=== PATIENT | male | born 1935 | race Caucasian/White ===

== ENCOUNTER 2022-10-03 11:02 | Inpatient (IN) ==
[2022-10-03] MEDS ORDERED: SODIUM CHLORIDE 1,000 ML IV STA (11:41)
--- NOTE | 2022-10-03 11:45 | ED.PDOC ---
General ED Provider: Dr. FRANKLIN SHARMA MD Chief Complaint: Weakness Stated Complaint: mild to mod general weakness today and trip and fall c/o mild left hip and knee ache, o/w no loc, no bleeding, no neck pain, gcs 15, hx resting tremors, no dm, mi or htn Time Seen by Provider: 10/03/22 11:34 Mode of Arrival: Wheelchair Information Source: Patient Primary Care Provider: GIOVANI GREEN MD Nursing and Triage Documentation Reviewed and Agree: Yes Does patient meet sepsis criteria?: No System Inflammatory Response Syndrome: Not Applicable Sepsis Protocol: For patient's 13 years and over: Temp is 96.8 and below OR 101 and greater Pulse >90 BPM Resp >20/minute Acutely Altered Mental Status Are patient's symptoms suggestive of a new infection, such as: -Pneumonia -Skin, Soft Tissue -Endocarditis -UTI -Bone, Joint Infection -Implantable Device -Acute Abdominal Infection -Wound Infection -Meningitis -Blood Stream Catheter Infection -Unknown Review of Systems Review Of Systems Constitutional: Reports Weakness; Denies Fever Eyes: Denies Vision change Ears, Nose, Mouth, Throat: Denies Throat pain Respiratory: Denies Cough or Short of air Cardiac: Denies Chest pain GI: Denies Abdominal pain or Vomiting : Denies Frequency Musculoskeletal: Reports Joint pain Skin: Reports Bruising Neurological: Denies Cognitive dysfunction All Other Systems: Other [facility] Medical History (Updated 10/03/22 @ 13:36 by FRANKLIN SHARMA MD) Acid reflux Acute arthritis Anesthesia History of gastrointestinal disorder History of hypertension Seasonal allergies Social History Smoking and tobacco status: Never smoker Alcohol intake: never Substance use type: does not use Seatbelt use: always Drives intoxicated or rides with intoxicated piledriver carpenter: No Water heater temperature set < 120 degrees: Yes Working smoke detector in home: Yes Fire extinguisher in home: Yes Carbon monoxide detector in home: Yes Surgical History History of cholecystectomy History of hernia surgery History of tonsillectomy Physical Exam Physical Exam Appearance: Reports No pain distress Ill-appearing: None Pain Distress: None Eyes: Reports ELSA, EOMI and Conjunctiva clear ENT: Reports Nose normal and Oropharynx normal Neck: Supple Respiratory: Reports Airway patent, Breath sounds clear and Breath sounds equal Cardiovascular: Reports RRR GI/: Reports Soft and Nontender Musculoskeletal: Reports ROM intact (tender anterior left knee and hip) Skin: Reports Warm and Dry Neurological: Reports Cranial nerves intact, Alert and Oriented Psychiatric: Reports Affect appropriate Interpretation Radiology Interpretation Radiology Interpretation By: Radiologist Exam Interpreted: CT Scan Xray Comments: no brain bleed Radiology Interpretation By: Radiologist Exam Interpreted: Other Xray Comments: no fx left knee or hip EKG Interpretation Time of EKG #1: 13:35 Rate: Normal Rhythm: Sinus Interpretation: rbbb, no stemi Critical Care Note Critical Care Note Total Critical Care Time (mins): 0 Course Course Hematology/Chemistry: 10/03/22 11:51 10/03/22 11:51 Orders, Labs, Meds: Lab Review 10/03/22 10/03/22 10/03/22 11:45 11:45 11:51 WBC 4.67 RBC 4.40 L Hgb 13.9 L Hct 41.3 L MCV 93.9 MCH 31.6 H MCHC 33.7 RDW Coeff of Adenike 12.6 Plt Count 196 Immature Gran % (Auto) 0.2 Neut % (Auto) 50.1 Lymph % (Auto) 19.3 Conway % (Auto) 28.7 H Eos % (Auto) 1.3 Baso % (Auto) 0.4 Neut # (Auto) 2.3 Lymph # (Auto) 0.9 Conway # (Auto) 1.3 Eos # (Auto) 0.1 Baso # (Auto) 0.0 Immature Gran # (Auto) 0.0 Sodium Potassium Chloride Carbon Dioxide Anion Gap BUN Creatinine Estimated GFR (MDRD) BUN/Creatinine Ratio Glucose Lactic Acid Calcium Total Bilirubin AST ALT Alkaline Phosphatase Troponin I Total Protein Albumin Globulin Albumin/Globulin Ratio Urine Color Urine Clarity Urine pH Ur Specific Stephenson Urine Protein Urine Glucose (UA) Urine Ketones Urine Blood Urine Nitrite Urine Bilirubin Urine Urobilinogen Ur Leukocyte Esterase Urine Microscopic RBC Ur Squamous Epith Cells Influ A Molecular Assay Negative by naat Influ B Molecular Assay Negative by naat SARS CoV-2 RNA Rapid DARLEEN Negative 10/03/22 10/03/22 10/03/22 11:51 11:51 12:36 WBC RBC Hgb Hct MCV MCH MCHC RDW Coeff of Adenike Plt Count Immature Gran % (Auto) Neut % (Auto) Lymph % (Auto) Conway % (Auto) Eos % (Auto) Baso % (Auto) Neut # (Auto) Lymph # (Auto) Conway # (Auto) Eos # (Auto) Baso # (Auto) Immature Gran # (Auto) Sodium 135.5 Potassium 3.97 Chloride 101.7 Carbon Dioxide 30.7 H Anion Gap 7.07 BUN 20.9 H Creatinine 0.93 Estimated GFR (MDRD) 77.00 BUN/Creatinine Ratio 22.47 Glucose 123.4 H Lactic Acid 1.30 Calcium 8.44 Total Bilirubin 0.93 AST 91.1 H ALT 69.4 H Alkaline Phosphatase 87.2 Troponin I < 0.012 Total Protein 6.72 Albumin 3.68 Globulin 3.04 Albumin/Globulin Ratio 1.21 Urine Color Dark Urine Clarity Clear Urine pH 6.0 Ur Specific Stephenson 1.025 Urine Protein 1+ H Urine Glucose (UA) Negative Urine Ketones Negative Urine Blood Negative Urine Nitrite Negative Urine Bilirubin Negative Urine Urobilinogen 0.2 Ur Leukocyte Esterase Negative Urine Microscopic RBC 2-5 Ur Squamous Epith Cells Not present Influ A Molecular Assay Influ B Molecular Assay SARS CoV-2 RNA Rapid DARLEEN Orders Category Date Time Status EKG-(ED ONLY) Stat CARDIO 10/03/22 11:41 Completed CBC W/ AUTO DIFF Stat LAB 10/03/22 11:51 Completed CMP [COMPREHENSIVE METABOLIC PANEL] Stat LAB 10/03/22 11:51 Completed FREE T4 (FREE THYROXINE) Stat LAB 10/03/22 13:34 Ordered LACTIC ACID Stat LAB 10/03/22 11:51 Completed MOLECULAR FLU A & B [FLU A/B MOLECULAR] Stat LAB 10/03/22 11:45 Completed SARS COV-2 RNA RAPID DARLEEN Stat LAB 10/03/22 11:45 Completed TROPONIN I Stat LAB 10/03/22 11:51 Completed TSH [THYROID STIMULATING HORMONE] Stat LAB 10/03/22 13:34 Ordered URINALYSIS C & S IF INDICATED Stat LAB 10/03/22 12:36 Completed Sodium Chloride 0.9% [Sodium Chloride] 1,000 ml MEDS 10/03/22 11:41 Discontinued IV BOLUS CHEST, 1V AP ONLY Stat RADS 10/03/22 11:[address] HEAD W/O CONTRAST Stat RADS 10/03/22 11:41 Completed HIP, LEFT 2VWS W OR W/O PELVIS Stat RADS 10/03/22 11:41 Completed KNEE, LEFT 1 OR 2 VIEWS Stat RADS 10/03/22 11:41 Completed Medications Discontinued Medications Generic Name Dose Route Start Last Admin Trade Name Jordin PRN Reason Stop Dose Admin Sodium Chloride 1,000 mls @ 1,000 mls/hr 10/03/22 11:41 10/03/22 13:01 Sodium Chloride IV 10/03/22 12:40 1,000 mls/hr BOLUS STA Administration Vital Signs: Temp Pulse Resp BP Pulse Ox 10/03/22 11:04 97.1 F L 73 18 146/82 H 94 L Discharge Plan Discharge Patient Disposition: ADMITTED INPATIENT Discharge Problem: Weakness Prescriptions: No Action propranolol 20 MG tablet 20 mg PO BID Probiotic 10 billion cell Capsule 1 cell PO DAILY primidone 50 mg tablet 150 mg PO BEDTIME tamsulosin 0.4 mg capsule 0.4 mg PO QDAY escitalopram oxalate 10 mg tablet 10 mg PO QDAY Did you review [place] ROR ENGINEER for ALL controlled substances?: Not Applicable ED Provider: FRANKLIN SHARMA Condition: Stable Physician Progress Note: [] full tele admit d/w Dr Green
[2022-10-03 11:55] LABS: BASOPHILS % (AUTO) 0.4 % (0.0-3.0); EOSINOPHILS # (AUTO) 0.1 K/ul (0.0-0.7); EOSINOPHILS % (AUTO) 1.3 % (0.0-7.0); HEMATOCRIT 41.3 % (42.0-52.0); HEMOGLOBIN 13.9 g/dl (14.0-18.0); IMMATURE GRANULOCYTE % (AUTO) 0.2 % (0.0-5.0); LYMPHOCYTES # (AUTO) 0.9 K/uL (0.60-3.4); LYMPHOCYTES % (AUTO) 19.3 (10.0-50.0); MEAN CORPUSCULAR HEMOGLOBIN 31.6 pg (27.0-31.0); MEAN CORPUSCULAR HGB CONC 33.7 (31.8-35.4); MEAN CORPUSCULAR VOLUME 93.9 fl (80.0-94.0); MONOCYTES # (AUTO) 1.3 K/uL (0.4-2.0); MONOCYTES % (AUTO) 28.7 (0-10); NEUTROPHILS # (AUTO) 2.3 K/ul (2.0-6.9); NEUTROPHILS % (AUTO) 50.1 % (42.2-75.2); PLATELET COUNT 196 10^3/uL (140-440); RDW COEFFICIENT OF VARIATION 12.6 % (11.6-14.8); WHITE BLOOD COUNT 4.67 K/ul (4.2-10.2)
[2022-10-03 12:07] LABS: ALANINE AMINOTRANSFERASE 69.4 U/L (0-50); ALBUMIN 3.68 g/dL (3.5-5.0); ALKALINE PHOSPHATASE 87.2 U/L (56-119); ASPARTATE AMINO TRANSFERASE 91.1 U/L (17-59); BILIRUBIN,TOTAL 0.93 mg/dL (0.2-1.3); BLOOD UREA NITROGEN 20.9 mg/dL (9-20); CALCIUM 8.44 mg/dL (8.4-10.2); CARBON DIOXIDE 30.7 mmol/L (22-30.0); CHLORIDE 101.7 mmol/L (98-107); CREATININE 0.93 mg/dL (0.60-1.10); GLUCOSE 123.4 mg/dL (74-106); SODIUM 135.5 mmol/L (134.5-145); TOTAL PROTEIN 6.72 g/dL (6.3-8.2)
[2022-10-03 12:17] LABS: MOLECULAR FLU A NEGATIVE BY NAAT (NEGATIVE); MOLECULAR FLU B NEGATIVE BY NAAT (NEGATIVE)
[2022-10-03 12:19] LABS: POTASSIUM 3.97 mmol/L (3.5-5.1)
[2022-10-03 12:20] LABS: TROPONIN I < 0.012 ng/ml (0.0000-0.120)
[2022-10-03 12:29] LABS: SARS COV-2 RNA RAPID NAAT NEGATIVE (NEGATIVE)
--- NOTE | 2022-10-03 12:36 | DI ---
EXAM: Chest one-view AP upright HISTORY: Weakness COMPARISON: 07/22/2019 FINDINGS: The lungs are clear. The cardiac silhouette is mildly enlarged. Vascular calcifications present in the aortic arch. Mild degenerative changes present in the right glenohumeral joint. IMPRESSION: Mild cardiomegaly with no acute cardiopulmonary process. 2. Mild degenerative change in the right glenohumeral joint.
--- NOTE | 2022-10-03 12:44 | DI ---
EXAM: Left knee two-view is HISTORY: Patient fell COMPARISON: None. FINDINGS: AP and cross-table lateral view of the left knee is obtained. The medial lateral joint co mpartments are normal. Patellofemoral joint is normal. There is no fracture or subluxation. There is no joint effusion. IMPRESSION: Negative AP and lateral left knee
--- NOTE | 2022-10-03 12:45 | DI ---
EXAM: Two views of the left hip HISTORY: Fall, left hip pain. COMPARISON: None. FINDINGS/IMPRESSION: No fracture or dislocation.
--- NOTE | 2022-10-03 12:46 | CT ---
EXAM: CT head without contrast. HISTORY: Weakness. COMPARISON: 07/22/1990. TECHNIQUE: Multiple axial images of the brain were obtained from the skull base through the vertex w ithout intravenous contrast. Multiplanar reformats were provided. FINDINGS: There is no intracranial hemorrhage or extraaxial collection. The wells-white differentiat ion is maintained without evidence for acute large vascular territory infarction. There are areas of periventricular and subcortical white matter low attenuation. The cortical sulci and cerebral ventr icles are symmetrically enlarged. The basal cisterns are well visualized. There is no hydrocephalus , mass effect, or midline shift. Atherosclerotic calcifications are present. Mild mucosal thickenin g maxillary and sphenoid sinuses. Otherwise, the paranasal sinuses and mastoid air cells are clear. The calvarium is intact. Since the prior study, there has been no significant interval change. IMPRESSION: 1. No acute intracranial abnormality. 2. 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 All CT scans are performed using dose optimization techniques as appropriate to the performed exam an d include at least one of the following: Automated exposure control, adjustment of the mA and/or kV according t o size, and the use of iterative reconstruction technique.
[2022-10-03 13:13] LABS: BILIRUBIN,URINE Negative (NEGATIVE); CLARITY,URINE Clear (CLEAR); COLOR,URINE Dark (YELLOW); GLUCOSE, URINE (UA) Negative (NEGATIVE); KETONES,URINE Negative (NEGATIVE); LEUKOCYTE ESTERASE ,URINE Negative (NEGATIVE); NITRITE,URINE Negative (NEGATIVE); PROTEIN,URINE 1+ (NEGATIVE); URINE, BLOOD Negative (NEGATIVE); UROBILINOGEN,URINE 0.2 (0.2)
[2022-10-03 13:16] LABS: SQUAMOUS EPITHELIAL CELL,UR NOT PRESENT (0-5)
[2022-10-03] MEDS ORDERED: TYLENOL PO PRN (13:36)
[2022-10-03] MEDS: SODIUM CHLORIDE 1,000 ML IV SCH (14:19)
[2022-10-03 14:55] VITALS: BMI 22.1
[2022-10-03] MEDS: INDERAL PO SCH (20:36)
[2022-10-03] MEDS: MYSOLINE PO SCH (20:36)
[2022-10-03] MEDS ORDERED: MYSOLINE PO SCH (21:00)
[2022-10-03] MEDS ORDERED: VISTARIL INJ IM PRN (21:18)
[2022-10-04] MEDS: SODIUM CHLORIDE 1,000 ML IV SCH ×2 (03:12→16:17)
[2022-10-04 04:19] LABS: BASOPHILS % (AUTO) 0.5 % (0.0-3.0); EOSINOPHILS # (AUTO) 0.1 K/ul (0.0-0.7); EOSINOPHILS % (AUTO) 1.5 % (0.0-7.0); HEMATOCRIT 39.4 % (42.0-52.0); HEMOGLOBIN 13.3 g/dl (14.0-18.0); IMMATURE GRANULOCYTE % (AUTO) 0.2 % (0.0-5.0); LYMPHOCYTES # (AUTO) 1.1 K/uL (0.60-3.4); LYMPHOCYTES % (AUTO) 18.5 (10.0-50.0); MEAN CORPUSCULAR HEMOGLOBIN 31.7 pg (27.0-31.0); MEAN CORPUSCULAR HGB CONC 33.8 (31.8-35.4); MEAN CORPUSCULAR VOLUME 93.8 fl (80.0-94.0); MONOCYTES # (AUTO) 1.9 K/uL (0.4-2.0); MONOCYTES % (AUTO) 32.7 (0-10); NEUTROPHILS # (AUTO) 2.8 K/ul (2.0-6.9); NEUTROPHILS % (AUTO) 46.6 % (42.2-75.2); PLATELET COUNT 187 10^3/uL (140-440); RDW COEFFICIENT OF VARIATION 12.6 % (11.6-14.8); WHITE BLOOD COUNT 5.94 K/ul (4.2-10.2)
[2022-10-04 04:31] LABS: ALANINE AMINOTRANSFERASE 54.4 U/L (0-50); ALBUMIN 3.09 g/dL (3.5-5.0); ALKALINE PHOSPHATASE 69.1 U/L (56-119); ASPARTATE AMINO TRANSFERASE 62.5 U/L (17-59); BILIRUBIN,TOTAL 1.16 mg/dL (0.2-1.3); BLOOD UREA NITROGEN 21.3 mg/dL (9-20); CARBON DIOXIDE 26.6 mmol/L (22-30.0); CHLORIDE 107.6 mmol/L (98-107); CREATININE 0.86 mg/dL (0.60-1.10); GLUCOSE 79.2 mg/dL (74-106); SODIUM 136.8 mmol/L (134.5-145); TOTAL PROTEIN 5.92 g/dL (6.3-8.2)
[2022-10-04 04:43] LABS: TROPONIN I < 0.012 ng/ml (0.0000-0.120)
[2022-10-04] MEDS: FLORASTOR PO SCH (08:53)
[2022-10-04] MEDS: LEXAPRO PO SCH (08:54)
[2022-10-04] MEDS: INDERAL PO SCH ×2 (08:54→20:27)
[2022-10-04] MEDS: FLOMAX PO SCH (08:54)
[2022-10-04] MEDS ORDERED: NON-FORMULARY MEDICATION (Lactobacillus Acidophilus [Probiotic] 10 billion cell Capsule) PO SCH (09:00)
--- NOTE | 2022-10-04 11:52 | RS.OTINEVL ---
Subjective - Patient information Date of Evaluation: 10/04/22 Date of Arrival on Unit: 10/03/22 Admitted From:: Home Diagnosis: Weakness, falls PRECAUTIONS: falls Usual Living Arrangement: With Spouse Living Arrangement Comments: Lives at home with spouse. Home Environment: House, Stairs (few), Rail (3 steps) Medical History: Hypertension, Arthritis Medical History Comments:: tremor, GERD, Surgical History: Cholecystectomy, Tonsillectomy Surgical History Comments:: hernia sx Medications: see chart - Level of function Prior to this admission, the patient could do the following:: Partially Dependent Ambulation Abilities prior to this admission: Pt's helps him with all ADLS. Current Level of Function: Partially Dependent Current Equipment Used at Home: rolling Walker, Cane, Shower chair. Interventions - Objective Patient Orientation: Person Current Interventions: IV's, Telemetry Observation: Pt is very weak and he will follow directions for transferring with a rolling walker. Pt requires assistance with all ADLs. Interventions - ROM Right Upper Extremity AROM: Slight limitation Left Upper Extremity AROM: Slight limitation - Strength Right Upper Extremity Strength: Mild Weakness Left Upper Extremity Strength: Mild Weakness - Sensation Right Upper Extremity Sensation: Intact/Normal Left Upper Extremity Sensation: Intact/Normal Balance - Sitting Balance Static Sitting Balance: Good Dynamic Sitting Balance: Good - Standing Balance Static Standing Balance: Fair Dynamic Standing Balance: Fair ADL Skills - Self Feeding Self Feeding: Min Assist - Grooming Grooming: Min Assist Grooming Set-up: Sitting - Bathing Bathing UE: Min Assist Bathing LE: Max Assist Bathing Set-up: Shower - Dressing Dressing UE: Min Assist Dressing LE: Max Assist - Toilet Management Toilet Hygiene: Max Assist Toilet Clothing Management: Mod Assist Functional Mobility - Bed Mobility Rolling R/L: Independent Scooting: Min Assist Supine to Sit: Min Assist Sit to Supine: Min Assist - Transfers Sit to Stand: CGA Stand to Sit: Min Assist Stand Pivot Transfers: Min Assist (Pt requires verbal cues. ) - Ambulation Weight Bearing Status: FWB Assistive Device Used: Rolling Walker Assistance needed with Ambulation: Min Assist - Safety Awareness Safety Awareness: Poor OLESYA INDEX SCORE: . Additional Treatment Performed - Time with patient Length of Evaluation: 18 Total treatment time: 29 Activities Do you enjoy playing games?: Yes Would you be interested in leaving your room for activities?: No Would you enjoy group activities?: No Do you have difficulty with your vision?: Yes (Wears glasses) What types of things do you enjoy doing? Any Hobbies?: Jean Paul. Patient Interests:: Watching Television, Puzzles/Games, Visiting/Socializing Patient Education Patient Education: Home Exercise Program, Education of Plan of Care Teaching Recipient: Patient Teaching Methods: Discussion, Demonstration Assessment Problem List:: Decreased safety/Risk of falls, Weakness Rehab Potential: Good Further Therapy Indicated?: Yes Evaluation Complexity: HISTORY: Medium, EXAM OF BODY SYSTEMS: Medium, CLINICAL DECISION MAKING: Medium Patient's Goal(s): To get stronger to return home. Short Term Goals - Goals GOAL 1: Pt to increase BUE strength to 4/5. Goal to be met by: 10/06/22 GOAL 2: Pt to increase dyn. std. bal. to Fair+. Goal to be met by: 10/06/22 GOAL 3: Pt to increase to CGA for sink level ADLS. Goal to be met by: 11/03/22 Chisel Mortiser Operator Goals GOAL 1: Pt to increase BUE strength to 4+/5. Goal to be met by: 10/10/22 GOAL 2: Pt to increase dyn. std. bal. to G-. Goal to be met by: 10/10/22 GOAL 3: To increase to sup for sink level ADLS. Goal to be met by: 10/10/22 Plan Plan of Care: Therapeutic EX, Therapeutic Activity, Self-Care/Home Management Frequency of Treatment: 1-2 X day, as tolerated Duration of Treatment: 1 Week Anticipated Discharge Destination: Home Treatment Diagnosis (ICD 10 Codes): Weakness R53.1, Z74.1 Need for assistance with personal care. Has the Physician been added for Co-signature?: Yes
--- NOTE | 2022-10-04 11:57 | RS.PTINEVL ---
Subjective - Patient information Date of Evaluation: 10/04/22 Date of Arrival on Unit: 10/03/22 Admitted From:: Home Diagnosis: falls, weakness Usual Living Arrangement: With Spouse Home Environment: House, Stairs (few), Rail (3 steps) Medical History: Hypertension, Arthritis Medical History Comments:: tremor, GERD, Surgical History: Cholecystectomy, Tonsillectomy Surgical History Comments:: hernia sx Medications: see chart Subjective Information/ Patient Comments:: pt states he got dizzy and fell and had to call son in law to come get him and put him in the car. reports some days she has him stay in bed because he is so unsteady and she can't help him. She reports this started a couple of weeks ago since having his tooth extracted. - Level of function Prior to this admission, the patient could do the following:: Partially Dependent Ambulation Current Level of Function: Partially Dependent Current Equipment Used at Home: rolling Walker, Cane, Shower chair. Interventions - Objective Patient Orientation: Person, Place Current Interventions: IV's, Telemetry Observation: pt with tremor noted in BUE. pt is impulsive at times and forgetful. Range of Motion - ROM Right Upper Extremity AROM: WFL's Left Upper Extremity AROM: WFL's Right Lower Extremity AROM: WFL's Left Lower Extremity AROM: WFL's Muscle Strength - Muscle Strength Right Upper Extremity Strength: Mild Weakness (grossly 4/5) Left Upper Extremity Strength: Mild Weakness (grossly 4/5) Right Lower Extremity Strength: Mild Weakness (hip flex 4-/5, knee flex/ext 4/5, ankle DF/PF 4/5) Left Lower Extremity Strength: Mild Weakness (hip flex 4-/5, knee flex/ext 4/5, ankle DF/PF 4/5) Sensation - Sensation Right Upper Extremity Sensation: Intact/Normal Left Upper Extremity Sensation: Intact/Normal Right Lower Extremity Sensation: Impaired Left Lower Extremity Sensation: Impaired (reports n/t in B feet at all times) Palpation Palpation Findings: None/Normal Coordination - Tests Left Heel to Man: Mild Deviation Toe Tapping: Mild Deviation Balance - Sitting Balance and Reactions Static Sitting Balance: Fair Dynamic Sitting Balance: Fair Sitting Equilibrium Reactions: Delayed Left, Delayed Right Sitting Protective Reactions: Delayed Left, Delayed Right - Standing Balance and Reactions Static Standing Balance: Poor Dynamic Standing Balance: Poor Standing Equilibrium Reactions: Delayed Left, Delayed Right Standing Protective Reactions: Delayed Left, Delayed Right Functional Mobility - Bed Mobility Rolling R/L: Min Assist Supine to Sit: Mod Assist, 1 person assist - Transfers Sit to Stand: Min Assist, 2 person assist Stand to Sit: Min Assist, 2 person assist - Safety Awareness Safety Awareness: Poor OLESYA INDEX SCORE: n/a Ambulation - Ambulation Assistive Device Used: Rolling Walker Orthotic/Prosthetic Device: No Distance: 5-6 ft Assistance needed with Ambulation: Min Assist, 2 person assist Gait Deviations: Narrow Based gait, Forward posture, Short stride, Deviates from path Ambulation Comments: pt requires assist with walker placement and requires simple step by step instructions Factors Affecting Ambulation: Decreased Balance, Weakness, Decreased Coordination, Dizziness, Decreased Safety, Cognitive Status, Limited Endurance Treatment time - Time with patient Length of Evaluation: 23 Total treatment time: 36 Patient Education - Education Patient Education: Activity Modification, Education of Plan of Care Teaching Recipient: Patient, Family Teaching Methods: Discussion Comments: discussion regarding POC as well as dc plan. Assessment - Assessment Problem List:: Decreased level of function, Requires training/education, Decreased safety/Risk of falls, Weakness, Cognitive status limits abilities Rehab Potential: Good Further Therapy Indicated?: Yes Candidate for Swing Bed for Therapy Services?: Feel pt may be a candidate for swing bed for therapy for short term depending on functional status after 3 day stay. (POC would include training for and family regarding safety at home.) Evaluation Complexity: HISTORY: Medium, EXAM OF BODY SYSTEMS: Medium, CLINICAL PRESENTATION: Medium, CLINICAL DECISION MAKING: Medium Patient's Goal(s): "I want to be able to walk better and go home." Short Term Goals GOAL #1: pt independent with rolling with bed rails. Goal to be met by: 10/07/22 GOAL #2: Transfer sup to/from sit min x 1 Goal to be met by: 10/07/22 GOAL #3: Transfer sit to/from stand min x 1 Goal to be met by: 10/07/22 GOAL #4: pt amb with rwx 75ft with min x 1 with improved gait sequencing w rwx Goal to be met by: 10/07/22 GOAL #5: Improve dyn sitting balance fair + Goal to be met by: 10/07/22 GOAL #6: Improve BLE strength to 4 to 4+/5 Goal to be met by: 10/07/22 Digital Strategy Director Goals GOAL #1: Transfer sup to/from sit to/from stand CGA x 1 Goal to be met by: 10/11/22 GOAL #2: pt amb with rwx functional household distances with CGA Goal to be met by: 10/11/22 GOAL #3: Improve dyn stand balance fair- Goal to be met by: 10/11/22 Plan Plan of Care: Therapeutic EX, Neuromuscular Re-Educ, Therapeutic Activity Other:: gait training Frequency of Treatment: 1-2 X day, as tolerated Duration of Treatment: 1 Week Anticipated Discharge Destination: Home Treatment Diagnosis (ICD 10 Codes): impaired balance R 26.81. gait difficulty R 26.2. weakness M62.81. falls R29.6 Has the Physician been added for Co-signature?: Yes
[2022-10-04] MEDS: MYSOLINE PO SCH (20:26)
[2022-10-04] MEDS: XANAX PO SCH (20:26)
[2022-10-05] MEDS: SODIUM CHLORIDE 1,000 ML IV SCH (05:03)
[2022-10-05 05:30] LABS: BASOPHILS % (AUTO) 0.5 % (0.0-3.0); EOSINOPHILS # (AUTO) 0.1 K/ul (0.0-0.7); EOSINOPHILS % (AUTO) 1.3 % (0.0-7.0); HEMATOCRIT 37.9 % (42.0-52.0); HEMOGLOBIN 12.9 g/dl (14.0-18.0); IMMATURE GRANULOCYTE % (AUTO) 0.3 % (0.0-5.0); LYMPHOCYTES # (AUTO) 1.1 K/uL (0.60-3.4); LYMPHOCYTES % (AUTO) 17.8 (10.0-50.0); MEAN CORPUSCULAR HEMOGLOBIN 31.6 pg (27.0-31.0); MEAN CORPUSCULAR VOLUME 92.9 fl (80.0-94.0); MONOCYTES # (AUTO) 1.9 K/uL (0.4-2.0); MONOCYTES % (AUTO) 31.3 (0-10); NEUTROPHILS % (AUTO) 48.8 % (42.2-75.2); PLATELET COUNT 196 10^3/uL (140-440); RDW COEFFICIENT OF VARIATION 12.6 % (11.6-14.8); RED BLOOD COUNT 4.08 10^6/ul (4.70-6.10); WHITE BLOOD COUNT 6.13 K/ul (4.2-10.2)
[2022-10-05 05:46] LABS: ALANINE AMINOTRANSFERASE 38.3 U/L (0-50); ALBUMIN 3.26 g/dL (3.5-5.0); ALKALINE PHOSPHATASE 61.5 U/L (56-119); ASPARTATE AMINO TRANSFERASE 55.6 U/L (17-59); BILIRUBIN,TOTAL 1.32 mg/dL (0.2-1.3); BLOOD UREA NITROGEN 18.7 mg/dL (9-20); CALCIUM 7.89 mg/dL (8.4-10.2); CARBON DIOXIDE 24.6 mmol/L (22-30.0); CHLORIDE 105.9 mmol/L (98-107); CREATININE 0.84 mg/dL (0.60-1.10); GLUCOSE 78.3 mg/dL (74-106); POTASSIUM 3.93 mmol/L (3.5-5.1); SODIUM 135.1 mmol/L (134.5-145); TOTAL PROTEIN 6.03 g/dL (6.3-8.2)
[2022-10-05] MEDS: FLOMAX PO SCH (09:36)
[2022-10-05] MEDS: INDERAL PO SCH ×2 (09:36→20:02)
[2022-10-05] MEDS: FLORASTOR PO SCH (09:36)
[2022-10-05] MEDS: LEXAPRO PO SCH (09:38)
--- NOTE | 2022-10-05 09:41 | PCM.PROG ---
Attending Provider: ATTENDING PROVIDER: Dr. GIOVANI GREEN MD This patient is seen with Tanisha Melendez, Nurse Practitioner. DATE OF SERVICE: 10/05/22 SUBJECTIVE: This 87 year old /WHITE M was hospitalized 10/03/22. The patient is pleasantly confused this morning. Still weak. Last night he was able to feed himself supper but has problems with ADLS. No evidence of CVA on CT. REVIEW OF SYSTEMS: CONSTITUTIONAL: Weakness. No night sweats. No fatigue, malaise, lethargy. No fever or chills. HEENT: Eyes: No visual changes. No eye pain. No eye discharge. ENT: No runny nose. No epistaxis. No sinus pain. No odynophagia. No congestion. RESPIRATORY: No cough, no congestion. No hemoptysis. No shortness of breath. CARDIOVASCULAR: No angina symptoms. No CHF symptoms. No atypical chest pain for CAD. No palpitations. No orthopnea.. GASTROINTESTINAL: No abdominal pain. No nausea or vomiting. No diarrhea or constipation. No hematemesis. No hematochezia. GENITOURINARY: No urgency. No frequency. No dysuria. No hematuria. No obstructive symptoms. No discharge. No pain. No significant abnormal bleeding. MUSCULOSKELETAL: No musculoskeletal pain; no joint swelling. NEUROLOGICAL: Tremors. Awake, alert, confused. No headache. No neck pain. No syncope. No seizures. Dizziness. PSYCHIATRIC: Not anxious. No depression. No suicidal thoughts. No homicidal thoughts. SKIN: No rash. No lesions. No wounds. ENDOCRINE: No unexplained weight loss. No weight gain. HEMATOLOGIC/LYMPHATIC: No anemia. No purpura. No petechiae. No prolonged or excessive bleeding. No palpable lymph nodes. PHYSICAL EXAMINATION: GENERAL: The patient is awake, alert, not oriented, lying/sitting in bed in no distress. VITAL SIGNS: Temperature 98.7 F, Pulse 59, Respiratory Rate 18, BP 150/77, Pulse Ox 93% HEENT: Head normocephalic, atraumatic. Eyes: Extraocular muscles are intact. Pupils are equal, round and reactive to light and accommodation. Ears: No lesions. Nose appeared normal. Throat: No exudate or erythema. NECK: Supple. No JVD, no carotid bruit. No lymphadenopathy or thyromegaly. LUNGS: Diminished breath sounds. Clear to auscultation. Percussion note normal. Chest symmetrical. HEART: S1, S2, no S3. No murmurs. No cyanosis or clubbing. No ascites. Pulses: Dorsalis pedis and posterior tibial pulses +1 to +2 both sides. ABDOMEN: Soft. Non-tender. Bowel sounds active. No CVA tenderness. No mass felt. EXTREMITIES: No edema. Full range of motion of all extremities, equal. NEUROLOGIC: No focal deficit. Cranial nerves II through XII are grossly intact. No headache. No double vision. SKIN: Not dry. Intact. Turgor-normal. LYMPHATIC: No palpable lymph nodes/no lymphedema. MUSCULOSKELETAL: Normal joints with no swelling. Muscle tone is normal. LAB REVIEW: 10/05/22 05:23 10/05/22 05:23 10/05/22 05:23: Sodium 135.1, Potassium 3.93, Chloride 105.9, Carbon Dioxide 24.6, Anion Gap 8.53, BUN 18.7, Creatinine 0.84, Estimated GFR (MDRD) 86.00, BUN/Creatinine Ratio 22.26, Glucose 78.3, Calcium 7.89 L, Total Bilirubin 1.32 H , AST 55.6, ALT 38.3, Alkaline Phosphatase 61.5, Total Protein 6.03 L, Albumin 3.26 L, Globulin 2.77, Albumin/Globulin Ratio 1.17 10/05/22 05:23: WBC 6.13, RBC 4.08 L, Hgb 12.9 L, Hct 37.9 L, MCV 92.9, MCH 31.6 H, MCHC 34.0, RDW Coeff of Adenike 12.6, Plt Count 196, Immature Gran % (Auto) 0.3, Neut % (Auto) 48.8, Lymph % (Auto) 17.8, Gregory % (Auto) 31.3 H, Eos % (Auto) 1.3, Baso % (Auto) 0.5, Neut # (Auto) 3.0, Lymph # (Auto) 1.1, Gregory # (Auto) 1.9, Eos # (Auto) 0.1, Baso # (Auto) 0.0, Immature Gran # (Auto) 0.0 ASSESSMENT: Please see below. 1. ACUTE CHANGE IN MENTAL STATUS 2. EXTREME GENERALIZED WEAKNESS 3. TREMORS 4. RECURRENT FALLS 5. HEADACHE PLAN: 1. Carotid scan for dizziness. 2. DC fluids. 3. Continue PT/OT. Plan and coordination of the patient's care discussed in the presence of Grievance And Appeals Coordinator and nurse. CONDITION: Stable TIME SPENT: 35 MINUTES SCRIBED BY: MARIE ROBISON Investment Banking Associate scribed while in presence of service performed by Dr. Green/Tanisha Melendez APRN on 10/05/22 ([id number])
--- NOTE | 2022-10-05 11:24 | US ---
EXAMINATION: Carotid Doppler ultrasound HISTORY: Mental status change, dizziness. COMPARISON: Ultrasound 07/22/2019. TECHNIQUE: Multiple sonographic images were obtained of the bilateral carotid vasculature using quach scale and color/spectral Doppler analysis. FINDINGS: Plaque distribution: Mild plaque at the carotid bifurcations bilaterally. Arterial velocities measured in centimeters per second. Right common carotid artery peak systolic velocity: 57.3 Right internal carotid artery peak systolic velocity: 78.1 Right internal carotid artery end diastolic velocity: 11.6 Right ICA/CCA ratio: 1.4 Right external carotid artery peak systolic velocity: 93.8 Left common carotid artery peak systolic velocity: 71.6 Left internal carotid artery peak systolic velocity: 68.9 Left internal carotid artery end diastolic velocity: 14.2 Left ICA/CCA ratio: 1.0 Left external carotid artery peak systolic velocity: 59.8 Vertebrals: - Right: Antegrade flow with normal waveform. - Left: Antegrade flow with normal waveform. Society of Radiologists in Ultrasound (SRU) consensus statement (Radiology 2003; 229:340-346. DOI 10 .[id number]) was used to estimate internal carotid artery stenosis. IMPRESSION: 1. No significant stenosis of the right internal carotid artery. 2. No significant stenosis of the left internal carotid artery. 3. Right Vertebral Artery: Antegrade. 4. Left Vertebral Artery: Antegrade.
[2022-10-05] MEDS: XANAX PO SCH (20:02)
[2022-10-05] MEDS: MYSOLINE PO SCH (20:05)
[2022-10-06 05:04] LABS: BASOPHILS % (AUTO) 0.6 % (0.0-3.0); EOSINOPHILS # (AUTO) 0.1 K/ul (0.0-0.7); EOSINOPHILS % (AUTO) 2.5 % (0.0-7.0); HEMATOCRIT 41.6 % (42.0-52.0); HEMOGLOBIN 14.3 g/dl (14.0-18.0); IMMATURE GRANULOCYTE % (AUTO) 0.2 % (0.0-5.0); LYMPHOCYTES # (AUTO) 0.8 K/uL (0.60-3.4); LYMPHOCYTES % (AUTO) 15.5 (10.0-50.0); MEAN CORPUSCULAR HEMOGLOBIN 31.6 pg (27.0-31.0); MEAN CORPUSCULAR HGB CONC 34.4 (31.8-35.4); MONOCYTES # (AUTO) 1.6 K/uL (0.4-2.0); MONOCYTES % (AUTO) 30.1 (0-10); NEUTROPHILS # (AUTO) 2.7 K/ul (2.0-6.9); NEUTROPHILS % (AUTO) 51.1 % (42.2-75.2); PLATELET COUNT 199 10^3/uL (140-440); RDW COEFFICIENT OF VARIATION 12.6 % (11.6-14.8); RED BLOOD COUNT 4.52 10^6/ul (4.70-6.10); WHITE BLOOD COUNT 5.22 K/ul (4.2-10.2)
[2022-10-06 05:18] VITALS: TEMP 97.3
[2022-10-06 05:18] LABS: ALANINE AMINOTRANSFERASE 35.1 U/L (0-50); ALBUMIN 3.55 g/dL (3.5-5.0); ALKALINE PHOSPHATASE 64.5 U/L (56-119); ASPARTATE AMINO TRANSFERASE 45.9 U/L (17-59); BILIRUBIN,TOTAL 1.2 mg/dL (0.2-1.3); BLOOD UREA NITROGEN 16.6 mg/dL (9-20); CALCIUM 8.42 mg/dL (8.4-10.2); CARBON DIOXIDE 26.9 mmol/L (22-30.0); CHLORIDE 102.6 mmol/L (98-107); CREATININE 0.8 mg/dL (0.60-1.10); POTASSIUM 3.97 mmol/L (3.5-5.1); SODIUM 134.7 mmol/L (134.5-145); TOTAL PROTEIN 6.47 g/dL (6.3-8.2)
[2022-10-06 05:55] VITALS: BP 158/81
[2022-10-06] MEDS: FLORASTOR PO SCH (08:57)
[2022-10-06] MEDS: LEXAPRO PO SCH (08:57)
[2022-10-06] MEDS: INDERAL PO SCH (08:57)
[2022-10-06] MEDS: FLOMAX PO SCH (08:57)
--- NOTE | 2022-10-06 12:26 | PCM.PROG ---
Melecio Neff was seen and examined today patient's condition is stable patient is resting at present time Patient's appetite has improved he is able to walk with some help Review of systems no chest pain no PND no orthopnea no palpitation patient seems to be oriented to place and person patient is less shaky today On physical exam patient's vitals temperature 9097.3 pulse 56 rest 56 respiratory rate 16 blood pressure 158/80 over 81 Oxygen saturation 93% on room air Physical exam HEENT normal neck supple CVS S1 and S2 no S3 lungs clear to auscultation abdomen soft extremities no edema he is moving all his extremities Labs hemoglobin hemoglobin 14.3 hematocrit 41 WBC 5000 normal differential creatinine 1.8 BUN 16 potassium 3.9 assessment weakness frequent falls falls confusion with no localizing neurological sign likely patient has advancing dementia causing all this issues plan is to improve his nutritional status and do PT OT patient is going to be admitted to swing bed for physical therapy occupational therapy Discussed the case with case maker also with the family especially if she is agreeable patient is also agreeable for physical therapy occupational therapy
--- NOTE | 2022-10-06 13:52 | HP ---
DATE OF SERVICE: 10/03/22 REASON FOR HOSPITALIZATION: 87 year old white male came to the emergency room with confusion, frequent falls, weakness of several days duration. HISTORY OF PRESENT ILLNESS: 87 year old white male who was brought to the emergency room by family because of falls and confusion along with weakness and inability to walk. His condition according to the family has deteriorated since he had his tooth extracted as week ago. He has poor appetite. He is not able to get up and walk and carry on activity of daily living by himself. A few times the patient was seen and examined in the ER with entire work up of CT scan of the head and chest x-ray which was all negative. He has mild dehydration. Patient was alert and oriented to place. PAST MEDICAL HISTORY: Patient has history of essential tremors and depression, prostatism REVIEW OF SYSTEMS: CONSTITUTIONAL: No night sweats. No fatigue, malaise, lethargy. No fever or chills. HEENT: Eyes: No visual changes. No eye pain. No eye discharge. ENT: No runny nose. No epistaxis. No sinus pain. No sore throat. No odynophagia. No ear pain. No congestion. RESPIRATORY: No cough, no congestion. No hemoptysis. No shortness of breath. CARDIOVASCULAR: No angina symptoms. No CHF symptoms. No atypical chest pain for CAD. No palpitations. No PND. No orthopnea. GASTROINTESTINAL: No abdominal pain. No nausea or vomiting. No diarrhea or constipation. No hematemesis. No hematochezia. GENITOURINARY: No urgency. No frequency. No dysuria. No hematuria. No obstructive symptoms. No discharge. No pain. No significant abnormal bleeding. MUSCULOSKELETAL: No musculoskeletal pain. No joint swelling. No arthritis. NEUROLOGICAL: No headache. No neck pain. No syncope. No seizures. No dizziness. PSYCHIATRIC: Not anxious. No depression. No suicidal thoughts. No homicidal thoughts. SKIN: No rash. No lesions. No wounds. ENDOCRINE: No unexplained weight loss. No weight gain. HEMATOLOGIC/LYMPHATIC: No anemia. No purpura. No petechiae. No prolonged or excessive bleeding. No palpable lymph nodes. PERSONAL/FAMILY/SOCIAL HISTORY: Patient is and lives with his . Nonsmoker, no alcohol abuse. He usually has been able to do all activities of daily living and still drives a car but things have changed after the tooth extraction and he has been more confused and inability to walk and falls. MEDICATIONS: Propranolol Lactobacillus (probiotic) Lexapro Tamsulosin Primidone ALLERGIES: Iodine dye PHYSICAL EXAMINATION: GENERAL: The patient is oriented to person and time. VITAL SIGNS: Temperature is 98, pulse 70, respiratory rate 18, blood pressure 110/70, pulse ox 95% on room air. HEENT: Head normocephalic, atraumatic. Eyes: Extraocular muscles are intact. Pupils are equal, round and reactive to light and accommodation. Ears: No lesions. Nose appeared normal. Throat: No exudate or erythema. NECK: Supple. No JVD, no carotid bruit. No lymphadenopathy or thyromegaly. LUNGS: Clear to auscultation. Percussion note normal. Chest symmetrical. HEART: S1, S2, no S3. No murmur. No cyanosis or clubbing. No ascites. Pulses: Dorsalis pedis and posterior tibial pulses +1 to +2 bilaterally. ABDOMEN: Soft. Nontender. Bowel sounds active. No CVA tenderness. No mass felt. EXTREMITIES: No edema. Full range of motion of all extremities, equal. NEUROLOGIC: No focal deficit. Cranial nerves II through XII are grossly intact. No headache, no double vision or headache. SKIN: Not dry. Intact. Turgor - normal. LYMPHATIC: No palpable lymph nodes/no lymphedema. MUSCULOSKELETAL: Normal joints with no swelling. Muscle tone is normal. LABS: T4 TSH are normal, cardiac markers negative, hemoglobin 13.9, hematocrit 41, WBC 4,000, normal differential, creatinine 0.9, BUN 21, potassium 3.9, liver profile mildly abnormal with ADL of 69, AST of 91. CT scan of the head was negative. EKG showed sinus rhythm, no active changes. ASSESSMENT: 1. Confusion with change in mental status,etiology unknown 2. Frequent falls 3. Essential tremors 4. Normal liver profile PLAN: 1. IV fluids 2. Continue CBC, CMP daily 3. Continue telemetry orders with EKG, cardiac markers 4. Do carotid scan 5. MRI of the head is going to be done as an out patient 6. Ultrasound of the liver 7. CT scan of the abdomen with contrast 8. Patient may need swing bed, discussed with the family TIME SPENT: More than 75 minutes. [facility]
--- NOTE | 2022-10-06 16:16 | PN ---
DATE OF SERVICE: 10/04/22 SUBJECTIVE: 87 year old white male was hospitalized with weakness, confusion and frequent falls. REVIEW OF SYSTEMS: CONSTITUTIONAL: No night sweats. No fatigue, malaise, lethargy. No fever or chills. HEENT: Eyes: No visual changes. No eye pain. No eye discharge. ENT: No runny nose. No epistaxis. No sinus pain. No sore throat. No odynophagia. No congestion. RESPIRATORY: No cough, no congestion. No hemoptysis. No shortness of breath. CARDIOVASCULAR: No angina symptoms. No CHF symptoms. No atypical chest pain for CAD. No palpitations. No PND. No orthopnea. GASTROINTESTINAL: No abdominal pain. No nausea or vomiting. No diarrhea or constipation. No hematemesis. No hematochezia. GENITOURINARY: No urgency. No frequency. No dysuria. No hematuria. No obstructive symptoms. No discharge. No pain. No significant abnormal bleeding. MUSCULOSKELETAL: No musculoskeletal pain; no joint swelling. NEUROLOGICAL: No headache. No neck pain. No syncope. No seizures. No dizziness. PSYCHIATRIC: Not anxious. No depression. No suicidal thoughts. No homicidal thoughts. SKIN: No rash. No lesions. No wounds. ENDOCRINE: No unexplained weight loss. No weight gain. HEMATOLOGIC/LYMPHATIC: No anemia. No purpura. No petechiae. No prolonged or excessive bleeding. No palpable lymph nodes. PHYSICAL EXAMINATION: GENERAL: The patient is oriented to time, place and person. VITAL SIGNS: Temp 97.7, pulse 65, respiratory rate 18, blood pressure 100/53, pulse ox 94% HEENT: Head normocephalic, atraumatic. Eyes: Extraocular muscles are intact. Pupils are equal, round and reactive to light and accommodation. Ears: No lesions. Nose appeared normal. Throat: No exudate or erythema. NECK: Supple. No JVD, no carotid bruit. No lymphadenopathy or thyromegaly. LUNGS: Decreased breath sounds and clear. Percussion note normal. Chest symmetrical. HEART: S1, S2, no S3. No murmurs. No cyanosis or clubbing. No ascites. Pulses: Dorsalis pedis and posterior tibial pulses +1 to +2 bilaterally. ABDOMEN: Soft. Nontender. Bowel sounds active. No CVA tenderness. No mass felt. EXTREMITIES: Moving all extremities. No edema. Full range of motion of all extremities, equal. NEUROLOGIC: No focal deficit. Cranial nerves II through XII are grossly intact. No headache. No double vision. SKIN: Not dry. Intact. Turgor - normal. LYMPHATIC: No palpable lymph nodes/no lymphedema. MUSCULOSKELETAL: Normal joints with no swelling. Muscle tone is normal. LABS: Hemoglobin 13.3, hematocrit 39, WBC 5,900, normal differential, creatinine 0.8, BUN 21, potassium 4.3 ASSESSMENT: Confusion Ataxia part of advancing age with dementia Patient's family is requesting Primidone for the essential tremors 100 mg at night, Xanax will put him on 0.25 mg at night. Patient used to take it before. Patient's was present in the room and agreeable for possible swing bed. Condition: Stable TIME SPENT: More than 35 minutes. Plan and coordination of the patient's care discussed in the presence of nurse. DAVIDE
--- NOTE | 2022-10-06 16:19 | PN ---
DATE OF SERVICE: 10/05/22 SUBJECTIVE: Patient was seen and examined with the nurse practitioner in the room. Patient's condition is improving. The Xanax at night has helped the patient a lot. Cardiovascular status is stable. His appetite seems to be improving. REVIEW OF SYSTEMS: CONSTITUTIONAL: No night sweats. No fatigue, malaise, lethargy. No fever or chills. HEENT: Eyes: No visual changes. No eye pain. No eye discharge. ENT: No runny nose. No epistaxis. No sinus pain. No sore throat. No odynophagia. No congestion. RESPIRATORY: No cough, no congestion. No hemoptysis. No shortness of breath. CARDIOVASCULAR: No angina symptoms. No CHF symptoms. No atypical chest pain for CAD. No palpitations. No PND. No orthopnea. GASTROINTESTINAL: No abdominal pain. No nausea or vomiting. No diarrhea or constipation. No hematemesis. No hematochezia. GENITOURINARY: No urgency. No frequency. No dysuria. No hematuria. No obstructive symptoms. No discharge. No pain. No significant abnormal bleeding. MUSCULOSKELETAL: No musculoskeletal pain; no joint swelling. NEUROLOGICAL: No headache. No neck pain. No syncope. No seizures. No dizziness. PSYCHIATRIC: Not anxious. No depression. No suicidal thoughts. No homicidal thoughts. SKIN: No rash. No lesions. No wounds. ENDOCRINE: No unexplained weight loss. No weight gain. HEMATOLOGIC/LYMPHATIC: No anemia. No purpura. No petechiae. No prolonged or excessive bleeding. No palpable lymph nodes. PHYSICAL EXAMINATION: GENERAL: The patient is in no distress. HEENT: Head normocephalic, atraumatic. Eyes: Extraocular muscles are intact. Pupils are equal, round and reactive to light and accommodation. Ears: No lesions. Nose appeared normal. Throat: No exudate or erythema. NECK: Supple. No JVD, no carotid bruit. No lymphadenopathy or thyromegaly. LUNGS: Clear to auscultation. Percussion note normal. Chest symmetrical. HEART: S1, S2, no S3. No murmurs. No cyanosis or clubbing. No ascites. Pulses: Dorsalis pedis and posterior tibial pulses +1 to +2 bilaterally. ABDOMEN: Soft. Nontender. Bowel sounds active. No CVA tenderness. No mass felt. EXTREMITIES: No edema. Full range of motion of all extremities, equal. NEUROLOGIC: No focal deficit. Cranial nerves II through XII are grossly intact. No headache. No double vision. SKIN: Not dry. Intact. Turgor - normal. LYMPHATIC: No palpable lymph nodes/no lymphedema. MUSCULOSKELETAL: Normal joints with no swelling. Muscle tone is normal. PLAN: Patient is going to be evaluated for swing bed. TIME SPENT: More than 35 minutes. Plan and coordination of the patient's care discussed in the presence of nurse. DAVIDE
[2022-10-07 06:12] LABS: HEPATITIS B SURFACE ANTIGEN Negative (Negative); HIV 4TH GENERATION W/REFLEX Non Reactive (Non Reactive); RAPID PLASMA REAGIN Non Reactive (Non Reactive)
[2022-10-09 11:17] LABS: HEPATITIS C QUANTITATION HCV Not Detected IU/mL (.)
== END 2022-10-06 12:25 | disposition swing bed (61) | DRG 948 ==
LOC: ED 11:02 → MEDSURG A 13:46
PROVIDERS: ADMIT Internal Medicine; ATTEND Internal Medicine
DX: R26.81 Unsteadiness on feet; Z20.822 Contact with and (suspected) exposure to COVID-19; I51.7 Cardiomegaly; R26.2 Difficulty in walking, not elsewhere classified; R29.6 Repeated falls; R53.1 Weakness

== ENCOUNTER 2024-06-30 13:53 | Inpatient (IN) ==
[2024-06-30] MEDS ORDERED: TYLENOL PO PRN (14:53)
[2024-06-30] MEDS ORDERED: SODIUM CHLORIDE 1,000 ML IV SCH (15:15)
[2024-06-30 15:18] LABS: BASOPHILS % (AUTO) 0.5 % (0.0-3.0); EOSINOPHILS # (AUTO) 0.1 K/ul (0.0-0.7); EOSINOPHILS % (AUTO) 1.3 % (0.0-7.0); HEMATOCRIT 44.3 % (42.0-52.0); HEMOGLOBIN 14.3 g/dl (14.0-18.0); IMMATURE GRANULOCYTE % (AUTO) 0.2 % (0.0-5.0); LYMPHOCYTES # (AUTO) 1.1 K/uL (0.60-3.4); LYMPHOCYTES % (AUTO) 16.9 (10.0-50.0); MEAN CORPUSCULAR HEMOGLOBIN 30.6 pg (27.0-31.0); MEAN CORPUSCULAR HGB CONC 32.3 (31.8-35.4); MEAN CORPUSCULAR VOLUME 94.7 fl (80.0-94.0); MONOCYTES # (AUTO) 1.5 K/uL (0.4-2.0); MONOCYTES % (AUTO) 23.3 (0-10); NEUTROPHILS # (AUTO) 3.7 K/ul (2.0-6.9); NEUTROPHILS % (AUTO) 57.8 % (42.2-75.2); PLATELET COUNT 263 10^3/uL (140-440); RDW COEFFICIENT OF VARIATION 13.7 % (11.6-14.8); RED BLOOD COUNT 4.68 10^6/ul (4.70-6.10)
[2024-06-30 15:30] LABS: ALANINE AMINOTRANSFERASE 13.9 U/L (0-50); ALBUMIN 3.59 g/dL (3.5-5.0); ALKALINE PHOSPHATASE 83.7 U/L (56-119); ASPARTATE AMINO TRANSFERASE 23.7 U/L (17-59); BILIRUBIN,TOTAL 0.66 mg/dL (0.2-1.3); BLOOD UREA NITROGEN 21.5 mg/dL (9-20); CALCIUM 8.76 mg/dL (8.4-10.2); CARBON DIOXIDE 29.3 mmol/L (22-30.0); CHLORIDE 106.3 mmol/L (98-107); CREATININE 0.97 mg/dL (0.60-1.10); GLUCOSE 107.1 mg/dL (74-106); POTASSIUM 4.05 mmol/L (3.5-5.1); SODIUM 140.7 mmol/L (134.5-145); TOTAL PROTEIN 6.2 g/dL (6.3-8.2)
[2024-06-30 15:51] VITALS: BMI 19.6
[2024-06-30] MEDS: SODIUM CHLORIDE 1,000 ML IV SCH (16:30)
[2024-06-30] MEDS: NAMENDA PO SCH (16:32)
[2024-06-30 17:11] LABS: BILIRUBIN,URINE Negative (NEGATIVE); CLARITY,URINE Clear (CLEAR); COLOR,URINE Yellow (YELLOW); GLUCOSE, URINE (UA) Negative (NEGATIVE); KETONES,URINE Negative (NEGATIVE); LEUKOCYTE ESTERASE ,URINE Negative (NEGATIVE); NITRITE,URINE Negative (NEGATIVE); PROTEIN,URINE 1+ (NEGATIVE); URINE, BLOOD Negative (NEGATIVE); UROBILINOGEN,URINE 0.2 (0.2)
[2024-06-30 17:17] LABS: SQUAMOUS EPITHELIAL CELL,UR 0-2 (0-5); URINE WBC, MICROSCOPIC 20-30 (0-2)
[2024-06-30 17:18] LABS: MUCUS,URINE 2+ (NOT PRESENT)
[2024-06-30] MEDS: INDERAL PO SCH (20:00)
[2024-06-30] MEDS: ARICEPT PO SCH (20:00)
[2024-06-30] MEDS: XANAX PO PRN (20:01)
[2024-06-30] MEDS: LOTRISONE 45 GM TP SCH (20:05)
[2024-07-01 05:21] LABS: BASOPHILS % (AUTO) 0.3 % (0.0-3.0); EOSINOPHILS # (AUTO) 0.1 K/ul (0.0-0.7); EOSINOPHILS % (AUTO) 1.8 % (0.0-7.0); HEMATOCRIT 43.9 % (42.0-52.0); HEMOGLOBIN 14.2 g/dl (14.0-18.0); IMMATURE GRANULOCYTE % (AUTO) 0.5 % (0.0-5.0); LYMPHOCYTES # (AUTO) 1.1 K/uL (0.60-3.4); LYMPHOCYTES % (AUTO) 18.6 (10.0-50.0); MEAN CORPUSCULAR HEMOGLOBIN 30.7 pg (27.0-31.0); MEAN CORPUSCULAR HGB CONC 32.3 (31.8-35.4); MEAN CORPUSCULAR VOLUME 94.8 fl (80.0-94.0); MONOCYTES # (AUTO) 1.6 K/uL (0.4-2.0); MONOCYTES % (AUTO) 26.3 (0-10); NEUTROPHILS # (AUTO) 3.2 K/ul (2.0-6.9); NEUTROPHILS % (AUTO) 52.5 % (42.2-75.2); PLATELET COUNT 271 10^3/uL (140-440); RDW COEFFICIENT OF VARIATION 13.6 % (11.6-14.8); RED BLOOD COUNT 4.63 10^6/ul (4.70-6.10); WHITE BLOOD COUNT 6.01 K/ul (4.2-10.2)
[2024-07-01 05:38] LABS: ALANINE AMINOTRANSFERASE 12.3 U/L (0-50); ALBUMIN 3.3 g/dL (3.5-5.0); ALKALINE PHOSPHATASE 77.6 U/L (56-119); ASPARTATE AMINO TRANSFERASE 31.4 U/L (17-59); BILIRUBIN,TOTAL 0.95 mg/dL (0.2-1.3); BLOOD UREA NITROGEN 18.2 mg/dL (9-20); CALCIUM 8.37 mg/dL (8.4-10.2); CARBON DIOXIDE 31.1 mmol/L (22-30.0); CHLORIDE 106.2 mmol/L (98-107); CREATININE 0.94 mg/dL (0.60-1.10); POTASSIUM 4.18 mmol/L (3.5-5.1); SODIUM 140.6 mmol/L (134.5-145); TOTAL PROTEIN 5.94 g/dL (6.3-8.2)
--- NOTE | 2024-07-01 07:26 | DI ---
EXAM: CHEST RADIOGRAPH TECHNIQUE: Frontal and lateral views of the chest. HISTORY: Fall. Confusion. COMPARISON: 10/03/2022 FINDINGS: The lungs are clear without focal consolidation. No pleural effusion or pneumothorax. The cardiomed iastinal silhouette, neela and pulmonary vascular markings are within normal limits. No acute osseous abnormality. IMPRESSION: 1. No acute cardiopulmonary process.
--- NOTE | 2024-07-01 07:27 | DI ---
EXAM: THREE VIEWS OF THE CERVICAL SPINE HISTORY: Fall with pain. COMPARISON: None FINDINGS: There is no acute compression fracture or subluxation. There is small scattered anterior d isc osteophytes. There is moderate facet arthropathy. There is no lytic or blastic lesion. The odo ntoid process is unremarkable. Soft tissues are normal. 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
--- NOTE | 2024-07-01 07:27 | DI ---
EXAM: LUMBAR SPINE RADIOGRAPH TECHNIQUE: 3 views of the lumbar spine. HISTORY: Falls, pain. COMPARISON: None. FINDINGS: There is multilevel degenerative disc disease which is greatest and severe at the L2-3 level where th ere is reversal of the normal lumbar lordosis. Vertebral body heights are preserved without fracture . Trace stepwise retrolisthesis from L2-L4. Multilevel facet arthropathy. IMPRESSION: - Multilevel lumbar spondylosis greatest at L2-L3. - No fracture or malalignment.
--- NOTE | 2024-07-01 07:28 | CT ---
EXAM: CT HEAD WITHOUT CONTRAST 06/22/2024. SAGITTAL AND CORONAL REFORMATTED IMAGES OBTAINED HISTORY: Fall. Pain COMPARISON: 10/03/2022 FINDINGS: There is no evidence of intracranial hemorrhage. The midline is maintained. There is no h ydrocephalus. Generalized atrophy. Chronic small vessel ischemic change. No cerebellar tonsillar e ctopia. Evaluation of the calvarium shows no fracture. The mastoid air cells are normally pneumatiz ed. IMPRESSION: No acute intracranial abnormality. All CT scans are performed using dose optimization techniques as appropriate to the performed exam an d include at least one of the following: Automated exposure control, adjustment of the mA and/or kV according t o size, and the use of iterative reconstruction technique.
--- NOTE | 2024-07-01 07:28 | DI ---
EXAM: TWO VIEWS OF THE LEFT HIP AND SINGLE FRONTAL VIEW OF THE PELVIS HISTORY: Fall with pain. COMPARISON: Left hip x-rays 10/03/2022 FINDINGS: Pelvic ring is intact. There are calcified phleboliths in the pelvis. There is degenerati ve disease of the lumbosacral spine. There is no definitive displaced fracture of the left hip on th is limited evaluation. There is mild degenerative change and osteophyte formation. The soft tissues are normal. IMPRESSION: Mild degenerative disease of the left hip with no definitive fracture. If there is clin ical concern for fracture, CT is recommended.
[2024-07-01] MEDS: FLOMAX PO SCH (08:04)
[2024-07-01] MEDS: LEXAPRO PO SCH (08:04)
[2024-07-01] MEDS: FLORASTOR PO SCH (08:04)
[2024-07-01] MEDS: NAPROSYN PO PRN (08:09)
[2024-07-01] MEDS ORDERED: NON-FORMULARY MEDICATION (Lactobacillus Acidophilus [Probiotic] 10 billion cell Capsule) PO SCH (09:00)
--- NOTE | 2024-07-01 09:19 | CT ---
EXAM: CT OF THE LEFT HIP WITHOUT CONTRAST HISTORY: Left hip pain with falls. COMPARISON: Pelvis/left hip radiographs 06/30/2024. CT pelvis 06/30/2016. TECHNIQUE: Noncontrast CT images of the left hip were obtained. Axial reconstructions with sagittal and coronal reformats were provided. 3-D volume rendered images: Not provided. FINDINGS: Diffuse demineralization limits sensitivity for detection of an acute nondisplaced fracture. No acut e fracture or dislocation identified. Moderate to severe degenerative changes with most pronounced j oint space narrowing superiorly and posteriorly. Dysplastic bump anterolaterally along the head neck junction of the femur could predispose to cam type femoral acetabular impingement. Small hip effusi on is nonspecific. No evidence of an erosive arthropathy/osteomyelitis. Small sclerotic lesions measuring up to 0.4 cm in size of the bony pelvis with similar appearance fav oring benign bone islands. Chronic sequela of calcific tendonitis/enthesopathy. Prostatic calcifica tions. Vascular calcifications. Subcutaneous edema most pronounced laterally and posteriorly without deep soft tissue ulcer or draina ble fluid collection. No deep soft tissue gas. No pathologically enlarged lymph nodes. IMPRESSION: No acute fracture. Diffuse demineralization. Correlation with MRI of the hip can be considered if t here is ongoing high clinical concern for an occult nondisplaced insufficiency fracture. Moderately severe degenerative changes of the hip. Subcutaneous edema posterolaterally without drainable fluid collection. Additional chronic / degenerative changes as detailed above. All CT scans are performed using dose optimization techniques as appropriate to the performed exam an d include at least one of the following: Automated exposure control, adjustment of the mA and/or kV according t o size, and the use of iterative reconstruction technique.
--- NOTE | 2024-07-01 11:49 | RS.PTINEVL ---
Subjective Patient information Date of Evaluation: 07/01/24 Date of Arrival on Unit: 06/30/24 Admitted From:: Home Usual Living Arrangement: Alone Living Arrangement Comments: Lives at home alone now that spouse is at [place]. Home Environment: House Medical History: Hypertension, Dementia and Arthritis Medical History Comments:: Parkinson's disease LATEX ALLERGY?: No Surgical History: Tonsillectomy Medications: see chart Subjective Information/ Patient Comments:: pt states that he is planning to be here in hospital for 3 days so he can go to the retirement with his . Level of function Prior to this admission, the patient could do the following:: Independent Selfcare, Independent ADL's, Independent Ambulation and Drive Abilities prior to this admission: per pt Current Level of Function: Partially Dependent Current Equipment Used at Home: Walker, BSC Interventions Objective Patient Orientation: Person and Place Current Interventions: Telemetry Observation: pt with increased thoracic kyphosis tremors noted B hands Range of Motion ROM Right Upper Extremity AROM: WFL's Left Upper Extremity AROM: WFL's Right Lower Extremity AROM: WFL's Left Lower Extremity AROM: WFL's Muscle Strength Muscle Strength Right Upper Extremity: Mild Weakness (grossly 4/5) Left Upper Extremity: Mild Weakness (grossly 4/5) Right Lower Extremity: Mild Weakness (hip flex 4-/5, knee flex/ext 4/5, ankle DF/PF 4/5) Left Lower Extremity: Mild Weakness (hip flex 4-/5, knee flex/ext 4/5, ankle DF/PF 4/5) Sensation Sensation Right Upper Extremity: Intact/Normal Left Upper Extremity: Intact/Normal Right Lower Extremity: Intact/Normal Left Lower Extremity: Intact/Normal Palpation Palpation Findings: None/Normal Balance Sitting Balance and Reactions Static Sitting Balance: Fair Dynamic Sitting Balance: Poor Standing Balance and Reactions Static Standing Balance: Poor Dynamic Standing Balance: Poor Standing Equilibrium Reactions: Delayed Left and Delayed Right Standing Protective Reactions: Delayed Left and Delayed Right Functional Mobility Bed Mobility Supine to Sit: Supervision Transfers Sit to Stand: Min Assist and 1 person assist Stand to Sit: CGA and 1 person assist Safety Awareness Safety Awareness: Fair OLESYA INDEX SCORE: n/a Ambulation Ambulation Assistive Device Used: Rolling Walker Orthotic/Prosthetic Device: No Distance: 15ft Assistance needed with Ambulation: CGA, Min Assist and 1 person assist Quality of Ambulation: pt amb with flexed posture, decreased step length. pt requires assist with placement of rwx Gait Deviations: Forward posture and Short stride Factors Affecting Ambulation: Decreased Balance, Weakness and Decreased Coordination Treatment time Units charged Gait trainin Time with patient Length of Evaluation: 19 Total treatment time: 28 Patient Education Education Patient Education: Activity Modification and Education of Plan of Care Teaching Recipient: Patient Teaching Methods: Discussion Comments: discussion regarding POC Assessment Assessment Problem List:: Decreased level of function, Requires training/education, De creased safety/Risk of falls, Weakness and Cognitive status limits abilities Rehab Potential: Fair Further Therapy Indicated?: Yes Candidate for Swing Bed for Therapy Services?: pt plan is to go to retirement Evaluation Complexity: HISTORY: Medium, EXAM OF BODY SYSTEMS: Medium, CLINICAL PRESENTATION: Medium and CLINICAL DECISION MAKING: Medium Patient's Goal(s): go to retirement with my Short Term Goals GOAL #1: pt demonstrate rolling and scooting in bed independently. Goal to be met by: 07/04/24 GOAL #2: Transfer sup to/from sit SBA Goal to be met by: 07/04/24 GOAL #3: Transfer sit to/from stand CGA x 1 Goal to be met by: 07/04/24 GOAL #4: pt amb with rwx 50ft with CGA x 1 Goal to be met by: 07/04/24 GOAL #5: Improve BLE strength 4 to 4+/5 Goal to be met by: 07/04/24 Comments:: 4+/5 GOAL #6: . 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: Yes
[2024-07-01] MEDS: ZOFRAN ODT PO PRN (14:13)
[2024-07-02 05:49] LABS: BASOPHILS % (AUTO) 0.4 % (0.0-3.0); EOSINOPHILS # (AUTO) 0.1 K/ul (0.0-0.7); EOSINOPHILS % (AUTO) 1.2 % (0.0-7.0); HEMOGLOBIN 13.9 g/dl (14.0-18.0); IMMATURE GRANULOCYTE % (AUTO) 0.3 % (0.0-5.0); LYMPHOCYTES # (AUTO) 1.3 K/uL (0.60-3.4); LYMPHOCYTES % (AUTO) 19.1 (10.0-50.0); MEAN CORPUSCULAR HEMOGLOBIN 30.5 pg (27.0-31.0); MEAN CORPUSCULAR HGB CONC 32.3 (31.8-35.4); MEAN CORPUSCULAR VOLUME 94.5 fl (80.0-94.0); MONOCYTES # (AUTO) 1.7 K/uL (0.4-2.0); MONOCYTES % (AUTO) 25.5 (0-10); NEUTROPHILS # (AUTO) 3.6 K/ul (2.0-6.9); NEUTROPHILS % (AUTO) 53.5 % (42.2-75.2); PLATELET COUNT 262 10^3/uL (140-440); RDW COEFFICIENT OF VARIATION 13.7 % (11.6-14.8); RED BLOOD COUNT 4.55 10^6/ul (4.70-6.10); WHITE BLOOD COUNT 6.71 K/ul (4.2-10.2)
[2024-07-02 06:02] LABS: ALBUMIN 3.33 g/dL (3.5-5.0); ALKALINE PHOSPHATASE 83.7 U/L (56-119); ASPARTATE AMINO TRANSFERASE 23.9 U/L (17-59); BILIRUBIN,TOTAL 0.87 mg/dL (0.2-1.3); BLOOD UREA NITROGEN 18.3 mg/dL (9-20); CALCIUM 8.65 mg/dL (8.4-10.2); CARBON DIOXIDE 31.1 mmol/L (22-30.0); CHLORIDE 104.5 mmol/L (98-107); CREATININE 1.01 mg/dL (0.60-1.10); GLUCOSE 85.3 mg/dL (74-106); POTASSIUM 3.99 mmol/L (3.5-5.1); TOTAL PROTEIN 5.95 g/dL (6.3-8.2)
--- NOTE | 2024-07-02 09:09 | HP ---
DATE OF SERVICE: 06/30/24 REASON FOR HOSPITALIZATION/ HISTORY OF PRESENT ILLNESS: Has become increasingly weaker, more dizzy, much worse after fall. Multiple falls at home. Low back pain, left side pain. Unable to use his walker PAST MEDICAL HISTORY: Helicobacter pylori (H. pylori) Weakness Anesthesia History of hypertension Seasonal allergies Acute arthritis PAST SURGICAL HISTORY: Colonoscopy 2019 History of Cholecystectomy History of Inguinal hernia repair-bilateral REVIEW OF SYSTEMS: CONSTITUTIONAL: No fever, no fatigue. HEENT: No sinus drainage, no sore throat. RESPIRATORY: No cough, no congestion. CARDIOVASCULAR: No atypical chest pain for coronary artery disease. No angina, CHF symptoms, palpitations or shortness of breath. GASTROINTESTINAL: No melena or abdominal pain. No GERD. GENITOURINARY: No hematuria, no prostatism, no polyuria. PHOTOGRAPHER LITHOGRAPHIC: No blackout, no dizziness, no headache, no double vision. MUSCULOSKELETAL: No osteoarthritis pain, no joint swelling. ENDOCRINE: No weight loss, no weight gain. SKIN: Not dry, no rash. PSYCHIATRIC: Not anxious, no depression, no suicidal thoughts, no homicidal thoughts. SOCIAL HISTORY: Marital Status: Children: 2 daughters MEDICATIONS: Alprazolam 0.25mg PO BID PRN Clotrimazole-betamethasone Donepezil 10mg PO bedtime Escitalopram oxalate 15mg PO daily Probiotic Memantine 10mg PO QPM Aleve 220mg PO BID PRN Propranolol take one tablet twice daily Tamsulosin 0.4mg PO daily ALLERGIES: Iodine PHYSICAL EXAMINATION: GENERAL APPEARANCE: Oriented times three. HEENT: Normal. NECK: No JVP, no bruits. RESPIRATORY: Lungs are clear. CARDIOVASCULAR: S1, S2, no S3, no murmur. No cyanosis, clubbing. No ascites. GI/ABDOMEN: No tenderness. Bowel sounds are active. EXTREMITIES: edema, pulses +1, equal. PHOTOGRAPHER LITHOGRAPHIC: Deep tendon reflexes, sensory, motor and gait all normal. RECTAL: 07/22 Shiben. ASSESSMENT: 1. Dehydration 2. Hypotension 3. Generalized weakness 4. Falls 5. History of CVA 6. Parkinson's disease 7. Right sided sciatica 8. Hypotension at times 9. 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 Admit to inpatient 2. Routine telemetry orders 3. CBC, CMP, U/A today 4. CBC and CMP daily 5. X-ray, C-spine, T-spine and left hip 6. Normal saline at 75cc/hour times 1 liter 7. Fall precautions 8. CT of brain with and without 9. Regular diet 10.Patient is DNR 11.Continue home medications TIME SPENT: More than 75 minutes. MTDD
--- NOTE | 2024-07-02 10:48 | RS.OTINEVL ---
Subjective Patient information Date of Evaluation: 07/02/24 Date of Arrival on Unit: 06/30/24 Admitted From:: Home Diagnosis: dehydration, hypotension, General weakness PRECAUTIONS: Fall risk Usual Living Arrangement: Alone Living Arrangement Comments: Lives at home alone now that spouse is at [place]. Home Environment: House Medical History: Hypertension, Dementia and Arthritis Medical History Comments:: Parkinson's disease with tremors LATEX ALLERGY?: No Surgical History: Tonsillectomy Surgical History Comments:: hernia surgery Medications: see chart Subjective Information/ Patient Comments:: Pt reports he is to see his tomorrow. She's at [place]. Level of function Prior to this admission, the patient could do the following:: Independent Selfcare, Independent ADL's, Independent Ambulation and Drive Abilities prior to this admission: Pt not able to drive. Pt is not able to tie his draw string. Current Level of Function: Partially Dependent Comments: Pt is weak and would benefit from skilled Occupational therapy. Pt requires min A to sit EOB. Pt has full AROM of BUE. Current Equipment Used at Home: Walker, BSC Interventions Objective Patient Orientation: Person Current Interventions: IV's Observation: Pt appears weak and having difficulty moving functionally. Interventions ROM Right Upper Extremity AROM: WFL's (4/5) Left Upper Extremity AROM: WFL's (4/5) Strength Right Upper Extremity: Mild Weakness Left Upper Extremity: Mild Weakness Sensation Right Upper Extremity: Intact/Normal Left Upper Extremity: Intact/Normal Balance Sitting Balance Static Sitting Balance: Good Dynamic Sitting Balance: Good Standing Balance Static Standing Balance: Poor Dynamic Standing Balance: Poor ADL Skills Self Feeding Self Feeding: Set Up Only Grooming Grooming: Min Assist Grooming Set-up: Sitting Bathing Bathing UE: Not Tested Bathing LE: Not Tested Bathing Set-up: Sink side Dressing Dressing UE: Set Up Only Dressing LE: Min Assist Toilet Management Toilet Hygiene: CGA Toilet Clothing Management: CGA Functional Mobility Bed Mobility Supine to Sit: Min Assist Transfers Sit to Stand: Min Assist and 1 person assist Stand to Sit: Min Assist Stand Pivot Transfers: Min Assist Ambulation Weight Bearing Status: FWB Assistive Device Used: Rolling Walker Assistance needed with Ambulation: CGA Safety Awareness Safety Awareness: Fair OLESYA INDEX SCORE: . Additional Treatment Performed Time with patient Length of Evaluation: 18 Total treatment time: 20 Activities Patient Interests:: Watching Television and Visiting/Socializing Patient Education Patient Education: Education of diagnosis and Education of Plan of Care Teaching Recipient: Patient Teaching Methods: Discussion Assessment Problem List:: Decreased level of function, Decreased safety/Risk of falls and Weakness Rehab Potential: Good Further Therapy Indicated?: Yes Evaluation Complexity: HISTORY: Medium, EXAM OF BODY SYSTEMS: Medium and CLINICAL DECISION MAKING: Medium Patient's Goal(s): To get better and go to [place]. Short Term Goals Goals GOAL 1: Pt to increase activity tolerance to 15 minutes for a task in standing. Goal to be met by: 07/05/24 GOAL 2: Pt to increase dyn. std. bal. to Fair+. Goal to be met by: 07/05/24 GOAL 3: Pt to increase to CGA for sink level ADLS. Goal to be met by: 07/05/24 Assistant Front End Manager Goals GOAL 1: Pt to increase activity tolerance to 20 minutes for a task in standing. Goal to be met by: 07/07/24 GOAL 2: Pt to increase dyn. std. bal. to G-. Goal to be met by: 07/07/24 GOAL 3: Pt to be (I) with ADLs. Goal to be met by: 07/07/24 Plan Plan of Care: Therapeutic EX, Therapeutic Activity and Self-Care/Home Management Frequency of Treatment: 1-2 X day, as tolerated Duration of Treatment: 1 Week Anticipated Discharge Destination: [facility] Facility Treatment Diagnosis (ICD 10 Codes): Weakness R53.1, Z74.1 Need for assistance with self care. Has the Physician been added for Co-signature?: Yes
[2024-07-02] MEDS: TUMS CHEWABLE PO PRN (16:24)
[2024-07-02] MEDS: PRILOSEC PO SCH (18:04)
--- NOTE | 2024-07-03 09:23 | PCM.PROG ---
Patient was seen on Patient is doing well oriented to time place and person Patient is undergoing physical therapy was able to walk with help of the walker Review of system no chest pain no PND no orthopnea no palpitation still weak but getting his strength back the appetite has improved some Vitals temperature 97.2 pulse 57/min respiratory 15/min blood pressure 1 50/84 p ulse ox 98% Physical exam CVS S1 and S2 no S3 no murmur Lungs clear to auscultation No edema Patient has tremors of right upper extremity And labs hemoglobin 13.9 hematocrit 40 WBC 6700 normal differential Creatinine 1 BUN 18 Potassium 3.9 Liver profile normal Assessment dehydration seems to have resolved with good skin turgor Hypotension has resolved Plan continue all the medication Patient had some gastroesophageal reflux disease type of symptoms so patient has been started on Prilosec 20 mg twice a day Continue the rest of the medications before Patient is ready to go to the care home and start physical therapy
--- NOTE | 2024-07-03 09:53 | PN ---
DATE OF SERVICE: 07/01/24 SUBJECTIVE: The patient was examined in room while eating breakfast. He had had an X-rays of the left hip yesterday on admission which showed that if he was having continued pain we may need to do a CT or MRI. The patient is reporting that he is still having persistent pain in that area and his lower back. All other x-rays showed no acute fractures after his falls. He reports that he slept well and he has been eating moderately well. Kidney function has improved. He had a bag of IV fluids. Head CT was normal. REVIEW OF SYSTEMS: CONSTITUTIONAL: No night sweats. No fatigue, malaise, lethargy. No fever or chills. HEENT: Eyes: No visual changes. No eye pain. No eye discharge. ENT: No runny nose. No epistaxis. No sinus pain. No sore throat. No odynophagia. No congestion. RESPIRATORY: No cough, no congestion. No hemoptysis. No shortness of breath. CARDIOVASCULAR: No angina symptoms. No CHF symptoms. No atypical chest pain for CAD. No palpitations. No PND. No orthopnea. GASTROINTESTINAL: No abdominal pain. No nausea or vomiting. No diarrhea or constipation. No hematemesis. No hematochezia. GENITOURINARY: No urgency. No frequency. No dysuria. No hematuria. No obstructive symptoms. No discharge. No pain. No significant abnormal bleeding. MUSCULOSKELETAL: No musculoskeletal pain; no joint swelling. Low back pain, left hip pain. Weakness. Tremors. NEUROLOGICAL: No headache. No neck pain. No syncope. No seizures. No dizziness. PSYCHIATRIC: Not anxious. No depression. No suicidal thoughts. No homicidal thoughts. SKIN: No rash. No lesions. No wounds. ENDOCRINE: No unexplained weight loss. No weight gain. HEMATOLOGIC/LYMPHATIC: No anemia. No purpura. No petechiae. No prolonged or excessive bleeding. No palpable lymph nodes. PHYSICAL EXAMINATION: HEENT: Head normocephalic, atraumatic. Eyes: Extraocular muscles are intact. Pupils are equal, round and reactive to light and accommodation. Ears: No lesions. Nose appeared normal. Throat: No exudate or erythema. NECK: Supple. No JVD, no carotid bruit. No lymphadenopathy or thyromegaly. LUNGS: Diminished breaths sounds otherwise normal. Clear to auscultation. Percussion note normal. Chest symmetrical. HEART: S1, S2, no S3. No murmurs. No cyanosis or clubbing. No ascites. Pulses: Dorsalis pedis and posterior tibial pulses +1 to +2 bilaterally. ABDOMEN: Soft. Nontender. Bowel sounds active. No CVA tenderness. No mass felt. EXTREMITIES: No edema. Full range of motion of all extremities, equal. NEUROLOGIC: No focal deficit. Cranial nerves II through XII are grossly intact. No headache. No double vision. SKIN: Not dry. Intact. Turgor - normal. No bruising. LYMPHATIC: No palpable lymph nodes/no lymphedema. MUSCULOSKELETAL: Normal joints with no swelling. Muscle tone is normal. ASSESSMENT: 1. Dehydration 2. Generalized weakness. 3. Low back pain 4. Left hip pain 5. Recent fall 6. Dizziness. PLAN: 1. We will do CT of left hip today 2. The patient also reports that he is having mild nausea, we will do Zofran 4mg TID PRN 3. Stop IV fluids 4. Regular diet 5. Physical therapy and occupational therapy evaluation. TIME SPENT: More than 35 minutes. Plan and coordination of the patient's care discussed in the presence of nurse. DAVIDE
--- NOTE | 2024-07-03 10:13 | DS ---
DATE OF SERVICE: 07/03/24 FINAL DIAGNOSIS: 1. Dehydration 2. Hypotension 3. Generalized weakness 4. Falls 5. History of CVA 6. Parkinson's disease 7. Dizziness 8. Low back pain 9. Left hip pain 10.Dementia 11.Anemia 12.Tremors 13.Dyslipidemia 14.GERD with nausea PHYSICAL EXAM: Oriented times three LUNGS: Diminished breath sounds. Otherwise normal REVIEW OF SYSTEMS: Weakness, Tremors Fatigue. Intermittent nausea. Otherwise normal DISCHARGE INSTRUCTIONS: Discharge to [facility]. MEDICATIONS AT DISCHARGE: Alprazolam 0.25mg PO BID PRN Clotrimazole-betamethasone Donepezil 10mg PO bedtime Escitalopram oxalate 15mg PO daily Probiotic Memantine 10mg PO QPM Aleve 220mg PO BID PRN Propranolol take one tablet twice daily Tamsulosin 0.4mg PO daily LABS: WBC 6.7, hgb 13.9, hct 43, plt count 262, sodium 140, potassium 3.9, BUN 18, creatinine 1.01 this is improved from admission. HOSPITAL COURSE: This is a 89 year old white male who was a direct admit from our office. He had had increase in dizziness at home with two to three falls over the weekend and was experiencing an exacerbation of low back pain as well as new left hip pain. The dizziness was worse from his baseline. He does have a history of Parkinson's and dizziness but again it was worsening. He was hypotensive in our office and found to be dehydrated with dry mucous membranes. He was admitted for evaluation. Kidney function was found to be elevated. X-rays of L-spine and C- spine were normal despite complaining of low back and neck pain. Left hip x-ray showed that there may need to be additional imaging if persistent pain. He did have persistent pain of the left hip along with increasing weakness and he had pain on ambulations so CT of the left hip was ordered and it was normal. CT of the brain was ordered due to worsening dizziness and it again was normal. He had a physical and occupational therapy evaluation, they believe that he is a good [facility]. He will go out there for rehab before possibly going back home. Glucose has been controlled. He has been eating moderately well. Proteins are low and had remained low during his hospital stay. We will discharge him to [facility] in stable condition. He is a DNR. TIME SPENT: 70 minutes MTDD
[2024-07-03 10:34] VITALS: BP 133/68; PULSE 63; RESP 20; TEMP 98.4
== END 2024-07-03 13:20 | DRG 641 ==
LOC: MEDSURG B 13:53
PROVIDERS: ADMIT Internal Medicine; ATTEND Internal Medicine

== ENCOUNTER 2024-09-03 14:15 | Inpatient (IN) ==
--- NOTE | 2024-09-03 14:24 | ED.PDOC ---
General ED Provider: Dr. 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 The patient is a poor historian but he states that he is weak all over and he feels like he has a fever. He also has a dry cough. He denies any chest pain abdominal pain. He denies any increased weakness on one side of the body. Denies any falls although unclear if this is reliable. He is here with his sister who was not at the house when he was sent in. He was brought in by EMS. He denies urinary symptoms. His history is otherwise limited due to his history of dementia. Sister says other than being weak he seems at his baseline. Time Seen by Provider: 09/03/24 14:24 Primary Care Provider: GIOVANI GREEN MD Nursing and Triage Documentation Reviewed and Agree: Yes What is Opioid Naive?: *Opioid Naive implies the patient is not already taking opioids or not chronically receiving opioids on a daily basis. *PRN dosing is not "usually" associated with tolerance. *Patients are at higher risk of over-sedation and aspiration. What is Opioid Tolerant?: *Opioid Tolerance implies less than the expected response to an opioid. *Acquired tolerance is defined by the patient taking 60mg of oral morphine daily (or equianalgesic dose of another opioid) for 1 week or more. *Often associated with chronic pain. *May take more than usual dose to achieve desired pain control. Review of Systems Review Of Systems Constitutional: Reports Chills and Fever [facility] Medical History Helicobacter pylori (H. pylori) A04.8 - Other specified bacterial intestinal infections (ICD-10) Weakness R53.1 - Weakness (ICD-10) Anesthesia does not do good at all with anesthesia. R20.0 - Anesthesia of skin (ICD-10) History of hypertension Z86.79 - Personal history of other diseases of the circulatory system (ICD- 10) Seasonal allergies J30.2 - Other seasonal allergic rhinitis (ICD-10) Acute arthritis M19.90 - Unspecified osteoarthritis, unspecified site (ICD-10) Family History FATHER No problems noted. Mother No problems noted. Other No known health problems Social History Smoking and tobacco status: Never smoker Alcohol intake: never Substance use type: does not use Special ricardo needs: No Agree to transfusion: Yes Adopted: No Caregiver/support person: No Foster care: No Household members: spouse Housing: house Marital status: M Lives independently: Yes Daycare: no daycare Number of children: 2 service: Yes Current occupational status: retired History of recent travel: No Do you think of yourself as: straight/heterosexual Current gender identity: male Seatbelt use: always Drives intoxicated or rides with intoxicated school bus driver/mechanic: No Water heater temperature set < 120 degrees: Yes Working smoke detector in home: Yes Fire extinguisher in home: Yes Carbon monoxide detector in home: Yes Surgical History History of cholecystectomy Z90.49 - Other specified postprocedural states (ICD-10) History of hernia surgery Inguinal hernia Dr. Tellez Z98.890 - Other specified postprocedural states (ICD-10) History of tonsillectomy Z90.89 - Other specified postprocedural states (ICD-10) Physical Exam Physical Exam Appearance: Reports No pain distress ENT: Reports Ears normal, Nose normal and Oropharynx normal Neck: Supple Respiratory: Reports Airway patent and Breath sounds clear Cardiovascular: Reports RRR and Pulses normal; Denies No murmur, Irregular rhythm or Tachycardia GI/: Reports Soft Musculoskeletal: Reports ROM intact, No edema and No calf tenderness Skin: Reports Warm Neurological: Reports Sensation intact, Motor intact (Positive weakness in the right lower extremity. Upper right and left lower extremity feel 5 out of 5, left lower extremity 5 out of 5, right lower extremities 4 out of 5.), Cranial nerves intact, Alert, Oriented (To person place and time) and Alert to verbal Psychiatric: Reports Affect appropriate Interpretation EKG Interpretation EKG Interpretation By: ED Physician Time of EKG #1: 15:05 Rate: Normal Rhythm: Sinus Ectopy: None [place]: Right Interpretation: Positive right bundle branch block Course Course 09/03/24 14:51 09/03/24 14:51 Orders, Labs, Meds: Lab Review 09/03/24 09/03/24 09/03/24 14:51 14:52 15:12 WBC 5.02 RBC 4.15 L Hgb 12.6 L Hct 39.5 L MCV 95.2 H MCH 30.4 MCHC 31.9 RDW Coeff of [place] 14.2 Plt Count 218 Immature Gran % (Auto) 0.2 Neut % (Auto) 36.3 L Lymph % (Auto) 14.5 [place] % (Auto) 48.6 H Eos % (Auto) 0.2 Baso % (Auto) 0.2 Neut # (Auto) 1.8 L Lymph # (Auto) 0.7 [place] # (Auto) 2.4 H Eos # (Auto) 0.0 Baso # (Auto) 0.0 Immature Gran # (Auto) 0.0 Sodium 136.7 Potassium 3.70 Chloride 103.5 Carbon Dioxide 29.3 Anion Gap 7.60 BUN 18.1 Creatinine 1.03 Estimated GFR (MDRD) 68.00 BUN/Creatinine Ratio 17.57 Glucose 126.5 H Calcium 8.13 L Magnesium 1.99 Total Bilirubin 0.68 AST 48.2 ALT 16.5 Alkaline Phosphatase 57.6 Troponin I < 0.012 Total Protein 5.86 L Albumin 3.02 L Globulin 2.84 Albumin/Globulin Ratio 1.06 TSH 0.761 Urine Color Yellow Urine Clarity Clear Urine pH 7.0 Ur Specific [place] 1.025 Urine Protein 2+ H Urine Glucose (UA) Negative Urine Ketones Negative Urine Blood Negative Urine Nitrite Negative Urine Bilirubin Negative Urine Urobilinogen 1.0 H Ur Leukocyte Esterase Negative Urine Microscopic WBC 5-10 Ur Squamous Epith Cells 2-5 Ur Transition Epith Cell 2-5 Calcium Oxalate Crystal 2+ Hyaline Casts 5-10 Urine Mucus 2+ Influ A Molecular Assay Negative by naat Influ B Molecular Assay Negative by naat RSV Antigen Negative by naat SARS CoV-2 RNA Rapid DARLEEN Positive H Orders Category Date Time Status OBSERVATION [PLACE PATIENT OBSERVATION] .TO MEDSURG ADMISSION 09/03/24 16:54 Active (MONITORED BED) EKG-(ED ONLY) Stat CARDIO 09/03/24 14:42 Completed ACTIVITY .Early Mobilization for VTE Prevention CARE 09/03/24 17:04 Active INTAKE & OUTPUT Q8HR CARE 09/03/24 17:04 Active NPO REMINDER: IMAGING ONCE CARE 09/03/24 14:42 Completed TELEMETRY MONITORING TELE CARE 09/03/24 16:54 Active VITAL SIGNS Q4HR CARE 09/03/24 17:04 Active REGULAR DIET DIETARY 09/03/24 Dinner Ordered CBC W/ AUTO DIFF DAILY@0600 LAB 09/04/24 06:00 Ordered CBC W/ AUTO DIFF DAILY@0600 LAB 09/05/24 06:00 Ordered CBC W/ AUTO DIFF Stat LAB 09/03/24 14:51 Completed CMP [COMPREHENSIVE METABOLIC PANEL] Stat LAB 09/03/24 14:51 Completed COMPREHENSIVE METABOLIC PANEL DAILY@0600 LAB 09/04/24 06:00 Ordered COMPREHENSIVE METABOLIC PANEL DAILY@0600 LAB 09/05/24 06:00 Ordered COVID [SARS COV-2 RNA RAPID DARLEEN] Stat LAB 09/03/24 14:52 Completed FLU A & B MOLECULAR [FLU A/B MOLECULAR] Stat LAB 09/03/24 14:52 Completed MAGNESIUM Stat LAB 09/03/24 14:51 Completed RAPID STREP SCREEN [MOLECULAR GROUP A STREP] Stat LAB 09/03/24 14:52 Completed RSV Stat LAB 09/03/24 14:52 Completed THYROID STIMULATING HORMONE Stat LAB 09/03/24 14:51 Completed TROPONIN I Stat LAB 09/03/24 14:51 Completed URINALYSIS C & S IF INDICATED Stat LAB 09/03/24 15:12 Completed URINE CULTURE Stat LAB 09/03/24 15:12 Received Acetaminophen [Tylenol] Meds 09/03/24 17:04 Active 650 mg PO Q4H PRN Enoxaparin Sodium [Lovenox] Meds 09/04/24 09:00 Active 40 mg SUBCUT DAILY Methylprednisolone Sod Succ/Pf [Solu-Medrol 40 mg] Meds 09/03/24 21:00 Active 40 mg IVP Q8HR Remdesivir [Veklury] 100 mg Meds 09/04/24 17:00 Active 0.9 % Sodium Chloride [Sodium Chloride 100Ml] 100 ml IV Q24H Remdesivir [Veklury] 200 mg Meds 09/03/24 17:04 Discontinued 0.9 % Sodium Chloride [Sodium Chloride] 250 ml IV ONCE Sodium Chloride 0.9% [Sodium Chloride] 1,000 ml Meds 09/03/24 17:30 Active IV 50 mls/hr CT HEAD W/O CONTRAST Stat RADS 09/03/24 15:47 Completed CXR [CHEST, 2 VIEWS PA & LAT] Stat RADS 09/03/24 14:42 Completed Medications Generic Name Dose Route Start Last Admin Trade Name Freq PRN Reason Stop Dose Admin Acetaminophen 650 mg 09/03/24 17:04 09/03/24 21:32 Acetaminophen 325 Mg Tablet PO 650 mg Q4H PRN Administration Mild Pain Alprazolam 0.25 mg 09/03/24 20:34 09/03/24 21:32 Alprazolam 0.25 Mg Tablet PO 0.25 mg BID PRN Administration Anxiety Donepezil HCl 10 mg 09/03/24 21:00 09/03/24 21:25 Donepezil Hcl 10 Mg Tablet PO 10 mg BEDTIME KEISHA Administration Enoxaparin Sodium 40 mg 09/04/24 09:00 Enoxaparin Sodium 40 Mg/0.4 Ml Syr SUBCUT DAILY [facility] Escitalopram Oxalate 15 mg 09/04/24 09:00 Escitalopram Oxalate 10 Mg Tablet PO DAILY KEISHA Sodium Chloride 1,000 mls @ 50 mls/hr 09/03/24 17:30 09/03/24 19:41 Sodium Chloride IV 50 mls/hr .Q20H KEISHA Administration Remdesivir 100 mg/ Sodium 100 mls @ 200 mls/hr 09/04/24 17:00 Chloride IV 09/07/24 17:29 Q24H KEISHA Memantine 10 mg 09/03/24 21:00 09/03/24 21:25 Memantine Hcl 10 Mg Tablet PO 10 mg QPM KEISHA Administration Methylprednisolone Sodium Succinate 40 mg 09/03/24 21:00 09/03/24 21:24 Methylprednisolone Sod Succ/Pf 40 Mg/Ml Vial IVP 40 mg Q8HR KEISHA Administration Multivitamins 1 tab 09/04/24 09:00 Multivitamin 1 Tab PO DAILY [facility] Omeprazole 40 mg 09/04/24 09:00 Omeprazole 20 Mg Capsule.Dr PO DAILY [facility] Propranolol HCl 20 mg 09/03/24 21:00 09/03/24 21:25 Propranolol Hcl 20 Mg Tablet PO 20 mg BID KEISHA Administration Saccharomyces Boulardii 250 mg 09/03/24 21:00 09/03/24 21:25 Saccharomyces Boulardii 250 Mg Capsule PO 250 mg BID KEISHA Administration Tamsulosin HCl 0.4 mg 09/04/24 09:00 Tamsulosin Hcl 0.4 Mg Cap.Er.24h PO DAILY KEISHA Discontinued Medications Generic Name Dose Route Start Last Admin Trade Name Jordin PRN Reason Stop Dose Admin Remdesivir 200 mg/ Sodium 250 mls @ 250 mls/hr 09/03/24 17:04 09/03/24 21:32 Chloride IV 09/03/24 18:03 250 mls/hr ONCE ONE Administration Vital Signs: Temp Pulse Resp BP Pulse Ox 09/03/24 15:08 99.9 F 09/03/24 14:16 99.7 F 69 20 110/71 97 Discharge Plan Discharge Patient Disposition: ADMITTED INPATIENT Discharge Problem: COVID Did you review [place] UNDERWRITING TECHNICIAN for ALL controlled substances?: Not Applicable ED Provider: DAVID CLARK Condition: Stable Physician Progress Note: 89-year-old male presented to the emergency department with worsening generalized weakness, feeling unwell having some chills as well as a dry cough. The rest of his history is either unremarkable or noncontributory. He has a low-grade temperature here rectally of 99.9 rest of his vitals are stable his lungs are clear to auscultation bilaterally with no wheezing rales or rhonchi, his heart sounds are normal no murmurs rubs or gallops. He has some right lower extremity weakness otherwise his neurological exam is intact other than the fact that he is slow to answer questions and needs to be redirected at times. [place] is broad at this point in time for patient's generalized weakness most likely infectious versus metabolic however will get CT head to ensure no intracranial hemorrhage. Will get chest x-ray screen for pneumonia, CBC CMP troponin and viral studies.
[2024-09-03 14:56] LABS: BASOPHILS % (AUTO) 0.2 % (0.0-3.0); EOSINOPHILS % (AUTO) 0.2 % (0.0-7.0); HEMATOCRIT 39.5 % (42.0-52.0); HEMOGLOBIN 12.6 g/dl (14.0-18.0); IMMATURE GRANULOCYTE % (AUTO) 0.2 % (0.0-5.0); LYMPHOCYTES # (AUTO) 0.7 K/uL (0.60-3.4); LYMPHOCYTES % (AUTO) 14.5 (10.0-50.0); MEAN CORPUSCULAR HEMOGLOBIN 30.4 pg (27.0-31.0); MEAN CORPUSCULAR HGB CONC 31.9 (31.8-35.4); MEAN CORPUSCULAR VOLUME 95.2 fl (80.0-94.0); MONOCYTES # (AUTO) 2.4 K/uL (0.4-2.0); MONOCYTES % (AUTO) 48.6 (0-10); NEUTROPHILS # (AUTO) 1.8 K/ul (2.0-6.9); NEUTROPHILS % (AUTO) 36.3 % (42.2-75.2); PLATELET COUNT 218 10^3/uL (140-440); RDW COEFFICIENT OF VARIATION 14.2 % (11.6-14.8); RED BLOOD COUNT 4.15 10^6/ul (4.70-6.10); WHITE BLOOD COUNT 5.02 K/ul (4.2-10.2)
[2024-09-03 15:11] LABS: ALANINE AMINOTRANSFERASE 16.5 U/L (0-50); ALBUMIN 3.02 g/dL (3.5-5.0); ALKALINE PHOSPHATASE 57.6 U/L (56-119); ASPARTATE AMINO TRANSFERASE 48.2 U/L (17-59); BILIRUBIN,TOTAL 0.68 mg/dL (0.2-1.3); BLOOD UREA NITROGEN 18.1 mg/dL (9-20); CALCIUM 8.13 mg/dL (8.4-10.2); CARBON DIOXIDE 29.3 mmol/L (22-30.0); CHLORIDE 103.5 mmol/L (98-107); CREATININE 1.03 mg/dL (0.60-1.10); GLUCOSE 126.5 mg/dL (74-106); MAGNESIUM 1.99 mg/dL (1.6-2.3); SODIUM 136.7 mmol/L (134.5-145); TOTAL PROTEIN 5.86 g/dL (6.3-8.2)
[2024-09-03 15:20] LABS: MOLECULAR FLU A NEGATIVE BY NAAT (NEGATIVE)
[2024-09-03 15:21] LABS: MOLECULAR FLU B NEGATIVE BY NAAT (NEGATIVE); SARS COV-2 RNA RAPID NAAT POSITIVE (NEGATIVE)
[2024-09-03 15:25] LABS: BILIRUBIN,URINE Negative (NEGATIVE); CLARITY,URINE Clear (CLEAR); COLOR,URINE Yellow (YELLOW); GLUCOSE, URINE (UA) Negative (NEGATIVE); KETONES,URINE Negative (NEGATIVE); LEUKOCYTE ESTERASE ,URINE Negative (NEGATIVE); NITRITE,URINE Negative (NEGATIVE); PROTEIN,URINE 2+ (NEGATIVE); URINE, BLOOD Negative (NEGATIVE)
[2024-09-03 15:25] LABS: RSV MOLECULAR NEGATIVE BY NAAT (NEGATIVE)
[2024-09-03 15:26] LABS: TROPONIN I < 0.012 ng/ml (0.0000-0.120)
[2024-09-03 15:37] LABS: CALCIUM OXALATE CRYSTALS,UR 2+ (NOT PRESENT); MUCUS,URINE 2+ (NOT PRESENT)
[2024-09-03 15:41] LABS: THYROID STIMULATING HORMONE 0.761 uIU/L (0.465-4.68)
--- NOTE | 2024-09-03 16:21 | CT ---
EXAM: CT OF THE HEAD WITHOUT CONTRAST. HISTORY: Weakness. COMPARISON: 06/30/2024 CT. TECHNIQUE: Axial noncontrast CT of the head. Sagittal and coronal reformats were obtained. FINDINGS: There is mild patient motion artifact. No intracranial hemorrhage or mass effect is identified. Mod erate prominence of the sulci and ventricles is again seen. Moderate periventricular white matter hy podensities are noted. No wells white matter differentiation loss is seen to suggest an acute infarct. Intracranial calcified atherosclerotic plaque is noted The calvarium is intact. Mild inspissated secretions are seen in the left sphenoid sinus. IMPRESSION: No evidence of an acute intracranial process. Moderate atrophy and chronic small vessel ischemic changes. All CT scans are performed using dose optimization techniques as appropriate to the performed exam an d include at least one of the following: Automated exposure control, adjustment of the mA and/or kV according t o size, and the use of iterative reconstruction technique.
--- NOTE | 2024-09-03 16:23 | DI ---
EXAM: CHEST TWO VIEWS HISTORY: Leg swelling COMPARISON: Chest radiographs from 06/30/2024 FINDINGS: The cardiomediastinal silhouette is normal. The pulmonary vasculature is normal. Gastric angles are blunted on the lateral view. There is suggestion of minimal subjacent opacity in the late ral projection. No pneumothoraces. The bones are intact. IMPRESSION: 1. Trace pleural effusions suggested on the lateral projection with possible subjacent atelectasis an d less likely infiltrates. .
[2024-09-03] MEDS: SODIUM CHLORIDE 1,000 ML IV SCH (19:41)
[2024-09-03 19:54] VITALS: BMI 18.1
[2024-09-03] MEDS: SOLU-MEDROL 40 MG IVP SCH (21:24)
[2024-09-03] MEDS: ARICEPT PO SCH (21:25)
[2024-09-03] MEDS: INDERAL PO SCH (21:25)
[2024-09-03] MEDS: FLORASTOR PO SCH (21:25)
[2024-09-03] MEDS: NAMENDA PO SCH (21:25)
[2024-09-03] MEDS: VEKLURY 200 MG in SODIUM CHLORIDE 250 ML IV ONE (21:32)
[2024-09-03] MEDS: XANAX PO PRN (21:32)
[2024-09-03] MEDS: TYLENOL PO PRN (21:32)
[2024-09-03 22:12] LABS: PROTHROMBIN TIME 12.2 SEC (9.3-11.0)
[2024-09-04 05:34] LABS: EOSINOPHILS # (AUTO) 0.1 K/ul (0.0-0.7); EOSINOPHILS % (AUTO) 2.6 % (0.0-7.0); HEMATOCRIT 43.4 % (42.0-52.0); HEMOGLOBIN 13.8 g/dl (14.0-18.0); IMMATURE GRANULOCYTE % (AUTO) 0.3 % (0.0-5.0); LYMPHOCYTES # (AUTO) 0.4 K/uL (0.60-3.4); LYMPHOCYTES % (AUTO) 14.3 (10.0-50.0); MEAN CORPUSCULAR HEMOGLOBIN 30.3 pg (27.0-31.0); MEAN CORPUSCULAR HGB CONC 31.8 (31.8-35.4); MEAN CORPUSCULAR VOLUME 95.4 fl (80.0-94.0); MONOCYTES # (AUTO) 0.7 K/uL (0.4-2.0); MONOCYTES % (AUTO) 22.7 (0-10); NEUTROPHILS # (AUTO) 1.9 K/ul (2.0-6.9); NEUTROPHILS % (AUTO) 60.1 % (42.2-75.2); PLATELET COUNT 198 10^3/uL (140-440); RDW COEFFICIENT OF VARIATION 14.1 % (11.6-14.8); RED BLOOD COUNT 4.55 10^6/ul (4.70-6.10); WHITE BLOOD COUNT 3.08 K/ul (4.2-10.2)
[2024-09-04 05:49] LABS: ALBUMIN 3.1 g/dL (3.5-5.0); BILIRUBIN,TOTAL 0.8 mg/dL (0.2-1.3); CALCIUM 8.2 mg/dL (8.4-10.2); CREATININE 0.9 mg/dL (0.60-1.10); POTASSIUM 4.4 mmol/L (3.5-5.1); TOTAL PROTEIN 5.9 g/dL (6.3-8.2)
[2024-09-04] MEDS: LEXAPRO PO SCH (09:31)
[2024-09-04] MEDS: MULTIVITAMIN TABLET PO SCH (09:33)
[2024-09-04] MEDS: FLOMAX PO SCH (09:34)
[2024-09-04] MEDS: PRILOSEC PO SCH (09:36)
[2024-09-04] MEDS: LOVENOX SUBCUT SCH (09:37)
--- NOTE | 2024-09-04 10:54 | PCM ---
Date of Service Date Seen by Provider: 09/04/24 Time Seen by Provider: 09:15 Admit Day/Time Admission Date: 09/04/24 Admission Time: 16:40 Reason for Admission Chief Complaint: weakness Hospital Provider Hospital Provider: OLIVERIO CULP, [facility] Primary Care Physician Primary Care Physician: GIOVANI HAWTHORNE MD History of Present Illness History of Present Illness: 89 yo male with pmh of dementia, hypertension, parkinson's, and bph presented to the ER for weakness. Patient returned home after residing a NH for 90 days and has been home for 1 week with his who is wheelchair bound and has 24hr caregiver in the home. Per family and ER doc, patient was so weak that they were not able to turn him in the bed or get him to walk. ER work-up revealed patient to be positive for Covid. On admission, O2 sat dropping down to 86-87% on RA. He was placed on 2L and is now maintaining a sat of 94-95%. Admitted to med/surg observation. Case Discussed With Case Discussed With: Patient's case was discussed with the ER Physicians, Dr. Rubin. [facility] Medical History Helicobacter pylori (H. pylori) A04.8 - Other specified bacterial intestinal infections (ICD-10) Weakness R53.1 - Weakness (ICD-10) Anesthesia does not do good at all with anesthesia. R20.0 - Anesthesia of skin (ICD-10) History of hypertension Z86.79 - Personal history of other diseases of the circulatory system (ICD- 10) Seasonal allergies J30.2 - Other seasonal allergic rhinitis (ICD-10) Acute arthritis M19.90 - Unspecified osteoarthritis, unspecified site (ICD-10) Surgical History History of cholecystectomy Z90.49 - Other specified postprocedural states (ICD-10) History of hernia surgery Inguinal hernia Dr. Tellez Z98.890 - Other specified postprocedural states (ICD-10) History of tonsillectomy Z90.89 - Other specified postprocedural states (ICD-10) Family History FATHER No problems noted. Mother No problems noted. Other No known health problems Social History Smoking and tobacco status: Never smoker Alcohol intake: never Substance use type: does not use Special ricardo needs: No Agree to transfusion: Yes Adopted: No Caregiver/support person: No Foster care: No Household members: spouse Housing: house Marital status: M Lives independently: Yes Daycare: no daycare Number of children: 2 service: Yes Current occupational status: retired History of recent travel: No Do you think of yourself as: straight/heterosexual Current gender identity: male Seatbelt use: always Drives intoxicated or rides with intoxicated tier truck driver: No Water heater temperature set < 120 degrees: Yes Working smoke detector in home: Yes Fire extinguisher in home: Yes Carbon monoxide detector in home: Yes Allergies Allergies Allergy/AdvReac Type Severity Reaction Status Date / Time iodine AdvReac Itching Verified 09/03/24 14:25 Current Medications Home Medications Lactobacillus acidophilus 10 billion cell capsule (Probiotic) 1 cell PO DAILY 07/03/19 [History Confirmed 09/03/24 Last Taken 10/06/22 09:00] clotrimazole-betamethasone 1 %-0.05 % topical cream See Rx Instructions .Route .COMPLEX #45 ea 10/22/23 [Rx Confirmed 09/03/24 Last Taken Unknown] tamsulosin 0.4 mg capsule 0.4 mg PO DAILY #90 ea 06/16/24 [Rx Confirmed 09/03/24 Last Taken Unknown] naproxen sodium 220 mg tablet (Aleve) 220 mg PO BID PRN pain 06/30/24 [History Confirmed 09/03/24 Last Taken Unknown] calcium carbonate (Tums) 200 mg PO QID #28 tabs 07/03/24 [Rx Confirmed 09/03/24 Last Taken Unknown] ondansetron 4 mg disintegrating tablet 4 mg PO Q8H PRN nausea and vomiting #14 tabs 07/03/24 [Rx Confirmed 09/03/24 Last Taken Unknown] aluminum hydrox-magnesium carb 160 mg-105 mg chewable tablet (Gaviscon Extra Strength) 1 tab PO TID PRN dyspepsia #270 tabs 07/07/24 [Rx Confirmed 09/03/24 Last Taken Unknown] hospitalbeds ([facility] Bed Rails) #1 ea 08/04/24 [Rx Confirmed 09/03/24 Last Taken Unknown] miscellaneous medical supply #1 ea 08/04/24 [Rx Confirmed 09/03/24 Last Taken Unknown] donepezil 10 mg tablet 10 mg PO BEDTIME #30 tabs 08/18/24 [Rx Confirmed 09/03/24 Last Taken Unknown] escitalopram oxalate 10 mg tablet 15 mg (1.5 x 10 mg) PO QDAY #45 tabs 08/18/24 [Rx Confirmed 09/03/24 Last Taken Unknown] memantine 10 mg tablet 10 mg PO QPM #30 tabs 08/18/24 [Rx Confirmed 09/03/24 Last Taken Unknown] propranolol 20 mg tablet See Rx Instructions .Route .COMPLEX #180 ea 08/18/24 [Rx Confirmed 09/03/24 Last Taken Unknown] alprazolam 0.25 mg tablet 0.25 mg PO BID PRN anxiety 09/03/24 [History Confirmed 09/03/24 Last Taken Unknown] carica papaya 3 tab PO BEDTIME 09/03/24 [History Confirmed 09/03/24 Last Taken Unknown] multivitamin 1 tab PO DAILY 09/03/24 [History Confirmed 09/03/24 Last Taken Unknown] omeprazole 20 mg capsule,delayed release 40 mg PO QDAY 09/03/24 [History Confirmed 09/03/24 Last Taken Unknown] ondansetron HCl 4 mg tablet 4 mg PO Q8H PRN nausea and vomiting 09/03/24 [History Confirmed 09/03/24 Last Taken Unknown] vitamins A,C,S-bfyn-mzhqeg 2,148 mcg-113 mg-45 mg-17.4 mg tablet (Eye Multivitamin) 2 tab PO BID 09/03/24 [History Confirmed 09/03/24 Last Taken Unknown] Home Acetaminophen (Acetaminophen 325 Mg Tablet) 650 mg PO Q4H PRN PRN Reason: Mild Pain Last Admin: 09/03/24 21:32 Dose: 650 mg Albuterol/Ipratropium (Ipratropium/Albuterol Vial.Neb) 3 ml NEB RTQ6H KEISHA Alprazolam (Alprazolam 0.25 Mg Tablet) 0.25 mg PO BID PRN PRN Reason: Anxiety Last Admin: 09/03/24 21:32 Dose: 0.25 mg Dexamethasone Sodium Phosphate (Dexamethasone Sod Phos 10 Mg/Ml Inj) 6 mg IVP DAILY [facility] Donepezil HCl (Donepezil Hcl 10 Mg Tablet) 10 mg PO BEDTIME [facility] Last Admin: 09/03/24 21:25 Dose: 10 mg Enoxaparin Sodium (Enoxaparin Sodium 40 Mg/0.4 Ml Syr) 40 mg SUBCUT DAILY [facility] Last Admin: 09/04/24 09:37 Dose: 40 mg Escitalopram Oxalate (Escitalopram Oxalate 10 Mg Tablet) 15 mg PO DAILY [facility] Last Admin: 09/04/24 09:31 Dose: 15 mg Sodium Chloride (Sodium Chloride) 1,000 mls @ 50 mls/hr IV .Q20H [facility] Last Admin: 09/03/24 19:41 Dose: 50 mls/hr Remdesivir 100 mg/ Sodium (Chloride) 100 mls @ 100 mls/hr IV DAILY@1200 [facility] Stop: 09/07/24 12:59 Memantine (Memantine Hcl 10 Mg Tablet) 10 mg PO QPM [facility] Last Admin: 09/03/24 21:25 Dose: 10 mg Multivitamins (Multivitamin 1 Tab) 1 tab PO DAILY [facility] Last Admin: 09/04/24 09:33 Dose: 1 tab Omeprazole (Omeprazole 20 Mg Capsule.Dr) 40 mg PO QDAC2 [facility] Last Admin: 09/04/24 09:36 Dose: 40 mg Propranolol HCl (Propranolol Hcl 20 Mg Tablet) 20 mg PO BID [facility] Last Admin: 09/03/24 21:25 Dose: 20 mg Saccharomyces Boulardii (Saccharomyces Boulardii 250 Mg Capsule) 250 mg PO BID [facility] Last Admin: 09/04/24 09:35 Dose: 250 mg Tamsulosin HCl (Tamsulosin Hcl 0.4 Mg Cap.Er.24h) 0.4 mg PO DAILY [facility] Last Admin: 09/04/24 09:34 Dose: 0.4 mg Discontinued Medications Remdesivir 200 mg/ Sodium (Chloride) 250 mls @ 250 mls/hr IV ONCE ONE Stop: 09/03/24 18:03 Last Admin: 09/03/24 21:32 Dose: 250 mls/hr Methylprednisolone Sodium Succinate (Methylprednisolone Sod Succ/Pf 40 Mg/Ml Vial) 40 mg IVP Q8HR [facility] Last Admin: 09/04/24 04:33 Dose: 40 mg Opioid Naive vs. Tolerant Does Patient Take Opioids?: No Is Patient Opioid Naive?: Yes What is Opioid Naive?: *Opioid Naive implies the patient is not already taking opioids or not chronically receiving opioids on a daily basis. *PRN dosing is not "usually" associated with tolerance. *Patients are at higher risk of over-sedation and aspiration. Is Patient Opioid Tolerant?: No What is Opioid Tolerant?: *Opioid Tolerance implies less than the expected response to an opioid. *Acquired tolerance is defined by the patient taking 60mg of oral morphine daily (or equianalgesic dose of another opioid) for 1 week or more. *Often associated with chronic pain. *May take more than usual dose to achieve desired pain control. Physical examination Most Recent Vital Signs: Most Recent Vital Signs Temperature 97.4 F L 09/04/24 09:41 Temperature Source Temporal Artery Scan 09/04/24 09:41 Temperature Source Rectal 09/03/24 15:08 Pulse Rate 50 L 09/04/24 09:41 Respiratory Rate 17 09/04/24 09:41 Blood Pressure 127/75 09/04/24 09:41 Blood Pressure Mean 92 09/04/24 09:41 Blood Pressure Left Arm 126/68 09/03/24 18:26 Blood Pressure Location Right Arm 09/04/24 09:41 Blood Pressure Position Supine 09/04/24 09:41 O2 Sat by Pulse Oximetry 95 09/04/24 09:41 Oxygen Delivery Method Room Air 09/04/24 09:41 Oxygen Flow Rate 1 09/04/24 05:27 Height 5 ft 9 in 09/03/24 18:26 Weight 55.9 kg 09/03/24 18:26 Telemetry Type Bedside Monitor 09/04/24 01:00 Telemetry Monitoring Continues 09/04/24 01:00 Telemetry Heart Rate 63 09/04/24 01:00 Telemetry SPO2 88 L 09/04/24 01:00 EKG AR Interval 0.19 09/04/24 01:00 EKG QRS Interval 0.09 09/04/24 01:00 Telemetry Strip Reading SR 09/04/24 01:00 Appearance: Positive No Apparent Distress, Ill-Appearing and Thin Skin: Positive Warm HEENT: Positive Normocephalic and PERRLA Neck: Positive Supple and Midline Trachea Chest/Lungs: Positive Symmetrical With Equal Breath Sounds, Clear to Auscultation Bilaterally and Other (diminished breath sounds) Heart: Positive Pulses Normal and Bracycardia GI/: Positive Soft, Nontender, Bowel Sounds Normal and No Distention Musculoskeletal: Positive Not Examined Extremities: Positive Intact Peripheral Pulses, Stable Joints Without Laxity and Good ROM in All Joints Neurological: Positive Sensation Intact, Motor intact, Alert, Disorinted and Other (answers questions appropriately) Labs This Visit Labs This Visit: Labs This Visit 09/03/24 09/03/24 09/03/24 14:51 14:52 15:12 WBC 5.02 RBC 4.15 L Hgb 12.6 L Hct 39.5 L MCV 95.2 H MCH 30.4 MCHC 31.9 RDW Coeff of Adenike 14.2 Plt Count 218 Immature Gran % (Auto) 0.2 Neut % (Auto) 36.3 L Lymph % (Auto) 14.5 Turner % (Auto) 48.6 H Eos % (Auto) 0.2 Baso % (Auto) 0.2 Neut # (Auto) 1.8 L Lymph # (Auto) 0.7 Turner # (Auto) 2.4 H Eos # (Auto) 0.0 Baso # (Auto) 0.0 Immature Gran # (Auto) 0.0 PT INR Sodium 136.7 Potassium 3.70 Chloride 103.5 Carbon Dioxide 29.3 Anion Gap 7.60 BUN 18.1 Creatinine 1.03 Estimated GFR (MDRD) 68.00 BUN/Creatinine Ratio 17.57 Glucose 126.5 H Calcium 8.13 L Magnesium 1.99 Total Bilirubin 0.68 AST 48.2 ALT 16.5 Alkaline Phosphatase 57.6 Troponin I < 0.012 Total Protein 5.86 L Albumin 3.02 L Globulin 2.84 Albumin/Globulin Ratio 1.06 TSH 0.761 Urine Color Yellow Urine Clarity Clear Urine pH 7.0 Ur Specific Eastern 1.025 Urine Protein 2+ H Urine Glucose (UA) Negative Urine Ketones Negative Urine Blood Negative Urine Nitrite Negative Urine Bilirubin Negative Urine Urobilinogen 1.0 H Ur Leukocyte Esterase Negative Urine Microscopic WBC 5-10 Ur Squamous Epith Cells 2-5 Ur Transition Epith Cell 2-5 Calcium Oxalate Crystal 2+ Hyaline Casts 5-10 Urine Mucus 2+ Influ A Molecular Assay Negative by naat Influ B Molecular Assay Negative by naat RSV Antigen Negative by naat SARS CoV-2 RNA Rapid DARELEN Positive H 09/03/24 09/04/24 21:57 05:29 WBC 3.08 L RBC 4.55 L Hgb 13.8 L Hct 43.4 MCV 95.4 H MCH 30.3 MCHC 31.8 RDW Coeff of Adenike 14.1 Plt Count 198 Immature Gran % (Auto) 0.3 Neut % (Auto) 60.1 Lymph % (Auto) 14.3 Turner % (Auto) 22.7 H Eos % (Auto) 2.6 Baso % (Auto) 0.0 Neut # (Auto) 1.9 L Lymph # (Auto) 0.4 L Turner # (Auto) 0.7 Eos # (Auto) 0.1 Baso # (Auto) 0.0 Immature Gran # (Auto) 0.0 PT 12.2 H INR 1.18 Sodium 138.0 Potassium 4.40 Chloride 104.0 Carbon Dioxide 28.0 Anion Gap 10.40 BUN 20.0 Creatinine 0.90 Estimated GFR (MDRD) 79.00 BUN/Creatinine Ratio 22.22 Glucose 139.0 H Calcium 8.20 L Magnesium Total Bilirubin 0.80 AST 38.0 ALT 18.0 Alkaline Phosphatase 63.0 Troponin I Total Protein 5.90 L Albumin 3.10 L Globulin 2.80 Albumin/Globulin Ratio 1.10 TSH Urine Color Urine Clarity Urine pH Ur Specific Eastern Urine Protein Urine Glucose (UA) Urine Ketones Urine Blood Urine Nitrite Urine Bilirubin Urine Urobilinogen Ur Leukocyte Esterase Urine Microscopic WBC Ur Squamous Epith Cells Ur Transition Epith Cell Calcium Oxalate Crystal Hyaline Casts Urine Mucus Influ A Molecular Assay Influ B Molecular Assay RSV Antigen SARS CoV-2 RNA Rapid DARLEEN Microbiology This Visit 09/03/24 14:52 Throat Group A Strep Molecular Assay - Final Imaging Imaging: EXAM: CHEST TWO VIEWS FINDINGS: The cardiomediastinal silhouette is normal. The pulmonary vasculature is normal. Gastric angles are blunted on the lateral view. There is suggestion of minimal subjacent opacity in the lateral projection. No pneumothoraces. The bones are intact. IMPRESSION: 1. Trace pleural effusions suggested on the lateral projection with possible subjacent atelectasis and less likely infiltrates. EXAM: CT OF THE HEAD WITHOUT CONTRAST. FINDINGS: There is mild patient motion artifact. No intracranial hemorrhage or mass effect is identified. Moderate prominence of the sulci and ventricles is again seen. Moderate periventricular white matter hypodensities are noted. No wells white matter differentiation loss is seen to suggest an acute infarct. Intracranial calcified atherosclerotic plaque is noted. The calvarium is intact. Mild inspissated secretions are seen in the left sphenoid sinus. IMPRESSION: No evidence of an acute intracranial process. Moderate atrophy and chronic small vessel ischemic changes Review Statement Review Statement: I have independently reviewed and interpreted the labs/EKGs/imaging that were ordered by the ER provider. I have reviewed all outside records that are available currently in our EMR including imaging/notes/labs from previous visits. Plan Plan: 1. Acute Hypoxic Respiratory Failure in setting of Covid-19 - wean oxygen as tolerated, steroids, nebs 2. Covid-19 - remdesivir loading dose then scheduled, decadron 6 mg daily 3. Bradycardia - typically runs in 50s per previous admission, holding propranolol 4. Hypertension - chronic, continue home medications 5. BPH - chronic, continue home medications DVT Prophylaxis: Lovenox Time Spent: Greater than 80 minutes spent with patient, 50% of the time spent with this patient was devoted to counseling and coordination of care. [facility] Plannin minutes spent discussing advance care planning. Disposition: Admit to: Med/surg Observation -> Med/surg inpatient due to likely need for >48 hours of care DNR Discussed Plan of Care with Dr. Ren Hawthorne. Medications Medication Orders: Medications Ordered Category Date Time Status Acetaminophen [Tylenol] Meds 09/03/24 17:04 Active 650 mg PO Q4H PRN Alprazolam [Xanax] Meds 09/03/24 20:34 Active 0.25 mg PO BID PRN Dexamethasone Sod Phosphate [Decadron] Meds 09/05/24 09:00 Active 6 mg IVP DAILY Donepezil HCl [Aricept] Meds 09/03/24 21:00 Active 10 mg PO BEDTIME Enoxaparin Sodium [Lovenox] Meds 09/04/24 09:00 Active 40 mg SUBCUT DAILY Escitalopram Oxalate [Lexapro] Meds 09/04/24 09:00 Active 15 mg PO DAILY Ipratropium/Albuterol Neb [Duoneb] Meds 09/04/24 12:00 Active 3 ml NEB RTQ6H Memantine HCl [Namenda] Meds 09/03/24 21:00 Active 10 mg PO QPM Multivitamin [Multivitamin Tablet] Meds 09/04/24 09:00 Active 1 tab PO DAILY Omeprazole [Prilosec] Meds 09/04/24 09:00 Active 40 mg PO QDAC2 Propranolol HCl [Inderal] Meds 09/03/24 21:00 Hold 20 mg PO BID Remdesivir [Veklury] 100 mg Meds 09/04/24 12:00 Active 0.9 % Sodium Chloride [Sodium Chloride 100Ml] 100 ml IV DAILY@1200 Saccharomyces Boulardii [Florastor] Meds 09/03/24 21:00 Active 250 mg PO BID Sodium Chloride 0.9% [Sodium Chloride] 1,000 ml Meds 09/03/24 17:30 Active IV 50 mls/hr Tamsulosin HCl [Flomax] Meds 09/04/24 09:00 Active 0.4 mg PO DAILY
[2024-09-04] MEDS: DUONEB NEB SCH (11:44)
[2024-09-04] MEDS: VEKLURY 100 MG in SODIUM CHLORIDE 100ML 100 ML IV SCH (12:53)
[2024-09-05 05:06] LABS: HEMATOCRIT 38.6 % (42.0-52.0); HEMOGLOBIN 12.4 g/dl (14.0-18.0); MEAN CORPUSCULAR HEMOGLOBIN 30.3 pg (27.0-31.0); MEAN CORPUSCULAR HGB CONC 32.1 (31.8-35.4); MEAN CORPUSCULAR VOLUME 94.4 fl (80.0-94.0); PLATELET COUNT 226 10^3/uL (140-440); RDW COEFFICIENT OF VARIATION 14.2 % (11.6-14.8); RED BLOOD COUNT 4.09 10^6/ul (4.70-6.10); WHITE BLOOD COUNT 7.86 K/ul (4.2-10.2)
[2024-09-05 05:16] LABS: PROTHROMBIN TIME 13.9 SEC (9.3-11.0)
[2024-09-05 05:25] LABS: ANISOCYTOSIS NOT PRESENT (NOT PRESENT)
[2024-09-05 05:29] LABS: ALBUMIN 2.7 g/dL (3.5-5.0); BILIRUBIN,TOTAL 0.5 mg/dL (0.2-1.3); CREATININE 0.9 mg/dL (0.60-1.10); POTASSIUM 4.1 mmol/L (3.5-5.1); TOTAL PROTEIN 5.2 g/dL (6.3-8.2)
--- NOTE | 2024-09-05 08:16 | PCM.PROG ---
Date/Time Seen Date Seen by Provider: 09/05/24 Time Seen by Provider: 08:00 Provider [facility]UL[facility] Chief Complaint Chief Complaint: weakness Subjective Subjective: Awake and eating breakfast this am. Reports being tired. on 1L of oxygen. Objective Appearance: Positive No Apparent Distress Chest/Lungs: Positive Symmetrical With Equal Breath Sounds, Rhonci (R lung) and Good Air Movement all 4 Lung Miranda Heart: Positive RRR and Pulses Normal GI/: Positive Soft, Nontender, Bowel Sounds Normal and No Distention Musculoskeletal: Positive Not Examined Neurological: Positive Sensation Intact, Motor intact, Alert and Disorinted (at baseline, dementia) Vital Signs Vital Signs: Vital Signs: Last 24 Hours 09/04/24 09:41 09/04/24 10:45 09/04/24 12:50 Temperature 97.4 F L Temperature Source Temporal Artery Scan Pulse Rate 50 L Respiratory Rate 17 Blood Pressure 127/75 129/70 Blood Pressure Mean 92 89 Blood Pressure Location Right Arm Right Arm Blood Pressure Position Supine Supine O2 Sat by Pulse Oximetry 95 98 Oxygen Delivery Method Room Air Nasal Cannula Nasal Cannula Oxygen Flow Rate 2 Telemetry Type Telemetry Monitoring Telemetry Heart Rate Telemetry SPO2 EKG CA Interval EKG QRS Interval Telemetry Strip Reading 09/04/24 13:00 09/04/24 13:20 09/04/24 14:00 Temperature 98.0 F Temperature Source Temporal Artery Scan Pulse Rate 55 L Respiratory Rate 16 Blood Pressure 108/61 123/70 Blood Pressure Mean 76 87 Blood Pressure Location Right Arm Blood Pressure Position Supine O2 Sat by Pulse Oximetry 94 L Oxygen Delivery Method Nasal Cannula Nasal Cannula Oxygen Flow Rate 1 Telemetry Type Bedside Monitor Telemetry Monitoring Continues Telemetry Heart Rate 57 L Telemetry SPO2 95 EKG CA Interval 0.20 EKG QRS Interval 0.08 Telemetry Strip Reading NSR 09/04/24 14:00 09/04/24 18:00 09/04/24 19:00 Temperature 98.2 F Temperature Source Temporal Artery Scan Pulse Rate 66 Respiratory Rate 16 Blood Pressure 126/74 Blood Pressure Mean 91 Blood Pressure Location Left Arm Blood Pressure Position Supine O2 Sat by Pulse Oximetry 96 92 L Oxygen Delivery Method Nasal Cannula Nasal Cannula Oxygen Flow Rate 1 1 Telemetry Type Bedside Monitor Telemetry Monitoring Continues Telemetry Heart Rate 55 L Telemetry SPO2 93 EKG CA Interval 0.14 EKG QRS Interval 0.10 Telemetry Strip Reading SINUS MINOO 09/04/24 19:40 09/04/24 20:00 09/04/24 21:24 Temperature 98.0 F Temperature Source Tympanic Pulse Rate 53 L Respiratory Rate 18 17 Blood Pressure 109/53 L Blood Pressure Mean 71 Blood Pressure Location Left Arm Blood Pressure Position Supine O2 Sat by Pulse Oximetry 94 L 97 Oxygen Delivery Method Nasal Cannula Nasal Cannula Room Air Oxygen Flow Rate 1 2 Telemetry Type Telemetry Monitoring Telemetry Heart Rate Telemetry SPO2 EKG CA Interval EKG QRS Interval Telemetry Strip Reading 09/05/24 01:00 09/05/24 01:36 09/05/24 05:01 Temperature 97.8 F 97.3 F L Temperature Source Tympanic Oral Pulse Rate 59 L 55 L Respiratory Rate 18 16 Blood Pressure 111/57 L 119/62 Blood Pressure Mean 75 81 Blood Pressure Location Left Arm Left Arm Blood Pressure Position Supine Supine O2 Sat by Pulse Oximetry 97 98 Oxygen Delivery Method Room Air Nasal Cannula Oxygen Flow Rate 1 Telemetry Type Bedside Monitor Telemetry Monitoring Continues Telemetry Heart Rate 52 L Telemetry SPO2 93 EKG CA Interval 0.15 EKG QRS Interval 0.12 H Telemetry Strip Reading SINUS BRADYCARDIA W/ BBB 09/05/24 05:28 09/05/24 07:00 Temperature Temperature Source Pulse Rate Respiratory Rate Blood Pressure Blood Pressure Mean Blood Pressure Location Blood Pressure Position O2 Sat by Pulse Oximetry Oxygen Delivery Method Nasal Cannula Oxygen Flow Rate Telemetry Type Remote Telemetry Telemetry Monitoring Continues Telemetry Heart Rate 56 L Telemetry SPO2 96 EKG CA Interval 0.16 EKG QRS Interval 0.12 H Telemetry Strip Reading SB W/ BBB Lab Results Lab Results: Lab Results: Last 24 Hours 09/05/24 04:52 WBC 7.86 RBC 4.09 L Hgb 12.4 L Hct 38.6 L MCV 94.4 H MCH 30.3 MCHC 32.1 RDW Coeff of Adenike 14.2 Plt Count 226 Neutrophils % (Manual) 58.0 Band Neutrophils % 4.0 Lymphocytes % (Manual) 13.0 Monocytes % (Manual) 21.0 H Reactive Lymphocytes 4.0 Anisocytosis Not present PT 13.9 H INR 1.36 Sodium 137.0 Potassium 4.10 Chloride 107.0 Carbon Dioxide 27.0 Anion Gap 7.10 BUN 29.0 H Creatinine 0.90 Estimated GFR (MDRD) 79.00 BUN/Creatinine Ratio 32.22 Glucose 146.0 H Calcium 8.00 L Total Bilirubin 0.50 AST 32.0 ALT 17.0 Alkaline Phosphatase 55.0 L Total Protein 5.20 L Albumin 2.70 L Globulin 2.50 Albumin/Globulin Ratio 1.08 Additional Comments Additional Comments: I have independently reviewed and interpreted the labs/EKGs/imaging ordered during this hospital stay. I have reviewed outside records that are available in our EMR that pertain to medical stay including imaging/notes/labs from previous visits. Active Medications Active Medications: Medications Generic Name Dose Route Start Last Admin Trade Name Freq PRN Reason Stop Dose Admin Acetaminophen 650 mg 09/03/24 17:04 09/04/24 20:10 Acetaminophen 325 Mg Tablet PO 650 mg Q4H PRN Administration Mild Pain Albuterol/Ipratropium 3 ml 09/04/24 12:00 09/05/24 05:30 Ipratropium/Albuterol Vial.Neb NEB 3 ml RTQ6H KEISHA Administration Alprazolam 0.25 mg 09/03/24 20:34 09/04/24 20:10 Alprazolam 0.25 Mg Tablet PO 0.25 mg BID PRN Administration Anxiety Dexamethasone Sodium Phosphate 6 mg 09/05/24 09:00 Dexamethasone Sod Phos 10 Mg/Ml Inj IVP DAILY KEISHA Donepezil HCl 10 mg 09/03/24 21:00 09/04/24 20:11 Donepezil Hcl 10 Mg Tablet PO 10 mg BEDTIME KEISHA Administration Enoxaparin Sodium 40 mg 09/04/24 09:00 09/04/24 09:37 Enoxaparin Sodium 40 Mg/0.4 Ml Syr SUBCUT 40 mg DAILY KEISHA Administration Escitalopram Oxalate 15 mg 09/04/24 09:00 09/04/24 09:31 Escitalopram Oxalate 10 Mg Tablet PO 15 mg DAILY KEISHA Administration Sodium Chloride 1,000 mls @ 50 mls/hr 09/03/24 17:30 09/04/24 17:27 Sodium Chloride IV 50 mls/hr .Q20H KEISHA Administration Remdesivir 100 mg/ Sodium 100 mls @ 100 mls/hr 09/04/24 12:00 09/04/24 12:53 Chloride IV 09/07/24 12:59 100 mls/hr DAILY@1200 KEISHA Administration Memantine 10 mg 09/03/24 21:00 09/04/24 16:33 Memantine Hcl 10 Mg Tablet PO 10 mg QPM KEISHA Administration Multivitamins 1 tab 09/04/24 09:00 09/04/24 09:33 Multivitamin 1 Tab PO 1 tab DAILY KEISHA Administration Omeprazole 40 mg 09/04/24 09:00 09/05/24 05:44 Omeprazole 20 Mg Capsule. PO 40 mg QDAC2 KEISHA Administration Propranolol HCl 20 mg 09/03/24 21:00 09/04/24 17:23 Propranolol Hcl 20 Mg Tablet PO Not Given BID KEISHA Saccharomyces Boulardii 250 mg 09/03/24 21:00 09/04/24 20:10 Saccharomyces Boulardii 250 Mg Capsule PO 250 mg BID KEISHA Administration Tamsulosin HCl 0.4 mg 09/04/24 09:00 09/04/24 09:34 Tamsulosin Hcl 0.4 Mg Cap.Er.24h PO 0.4 mg DAILY KEISHA Administration Plan Plan: 1. Acute Hypoxic Respiratory Failure in setting of Covid-19 - Improving, down 1L today, wean oxygen as tolerated, steroids, nebs 2. Covid-19 - remdesivir loading dose then scheduled, decadron 6 mg daily 3. Bradycardia - Improved, typically runs in 50s per previous admission, holding propranolol 4. Hypertension - chronic, continue home medications 5. BPH - chronic, continue home medications DVT Prophylaxis: Lovenox Review Statement Review Statement: I have personally discussed and reviewed the patient's visit/currently labs/imaging/decision making with Dr. Hawthorne, my supervising attending. Greater that 50 minutes spent with patient, 50% of the time spent with this patient was devoted to counseling and coordination of care.
[2024-09-05] MEDS: DECADRON IVP SCH (08:57)
--- NOTE | 2024-09-05 09:45 | RS.PTINEVL ---
Subjective Patient information Date of Evaluation: 09/05/24 Date of Arrival on Unit: 09/03/24 Admitted From:: Home Diagnosis: COVID, impaired mobility Usual Living Arrangement: With Spouse Living Arrangement Comments: lives with , has 24 hour caregivers Home Environment: House and Ramp Medical History: Hypertension, CVA/TIA, Dementia and Arthritis Medical History Comments:: Parkinson's disease LATEX ALLERGY?: No Surgical History: Cholecystectomy and Tonsillectomy Surgical History Comments:: hernia repair Medications: see chart Subjective Information/ Patient Comments:: pt states that he and his have caregivers at home. States he primarily uses w/c. Level of function Abilities prior to this admission: pt and were in [facility] and were dc approx. 1 week ago. They are both w/c bound and they have 24 hour caregivers. Current Level of Function: Partially Dependent Current Equipment Used at Home: w/c and rwx Interventions Objective Patient Orientation: Person, Place and Situation Current Interventions: Oxygen (2 liters) and Telemetry Observation: pt with tremors noted. pt appears frail. Range of Motion ROM Right Upper Extremity AROM: WFL's Left Upper Extremity AROM: WFL's Right Lower Extremity AROM: WFL's Left Lower Extremity AROM: WFL's Muscle Strength Muscle Strength Right Upper Extremity: Mild Weakness (shld flex 4-/5, elbow flex/ext 4/5 ) Left Upper Extremity: Mild Weakness (shld flex 4-/5, elbow flex/ext 4/5 ) Right Lower Extremity: Mild Weakness (hip flex 3+/5, knee flex/ext 4-/5, ankle DF/PF 4-/5) Left Lower Extremity: Mild Weakness (hip flex 4-/5, knee flex/ext 4/5, ankle DF/PF 4/5 ) Sensation Sensation Right Upper Extremity: Intact/Normal Left Upper Extremity: Intact/Normal Right Lower Extremity: Intact/Normal Left Lower Extremity: Intact/Normal Palpation Palpation Findings: None/Normal Balance Sitting Balance and Reactions Static Sitting Balance: Fair Dynamic Sitting Balance: Poor Sitting Equilibrium Reactions: Delayed Left and Delayed Right Sitting Protective Reactions: Delayed Left and Delayed Right Standing Balance and Reactions Static Standing Balance: Poor Dynamic Standing Balance: Poor Standing Equilibrium Reactions: Delayed Left and Delayed Right Standing Protective Reactions: Delayed Left and Delayed Right Functional Mobility Bed Mobility Comments:: pt seen sitting edge of bed with nursing Transfers Sit to Stand: Mod Assist, 1 person assist and 2 person assist Stand to Sit: Mod Assist and 1 person assist Safety Awareness Safety Awareness: Poor OLESYA INDEX SCORE: n/a Ambulation Ambulation Assistive Device Used: Rolling Walker Orthotic/Prosthetic Device: No Distance: 3-4 steps bed to chair Assistance needed with Ambulation: Min Assist, Mod Assist, 1 person assist and 2 person assist Gait Deviations: Narrow Based gait, Forward posture, Short stride and Deviates from path Factors Affecting Ambulation: Decreased Balance, Breathing/O2 Saturation, Weakness, Decreased Coordination, Decreased Safety, Cognitive Status and Limited Endurance Treatment time Units charged ADL: 1 (theract ) Time with patient Length of Evaluation: 18 Total treatment time: 24 Patient Education Education Patient Education: Activity Modification Teaching Recipient: Patient Teaching Methods: Discussion Comments: discussion regarding POC Assessment Assessment Problem List:: Decreased level of function, Requires training/education, Decreased safety/Risk of falls, Weakness and Cognitive status limits abilities Rehab Potential: Fair Further Therapy Indicated?: Yes Candidate for Swing Bed for Therapy Services?: pt may not be a candidate for swing bed for therapy at this time. Evaluation Complexity: HISTORY: Medium, EXAM OF BODY SYSTEMS: Medium, CLINICAL PRESENTATION: Medium and CLINICAL DECISION MAKING: Medium Patient's Goal(s): Go home Short Term Goals GOAL #1: pt demonstrate rolling and scooting to edge of bed with CGA Goal to be met by: 09/08/24 GOAL #2: transfer sup to/from sit min to CGA x 1 Goal to be met by: 09/08/24 GOAL #3: Transfer sit to/from stand with min x 1 Goal to be met by: 09/08/24 GOAL #4: Stand pivot bed to chair min x 1 Goal to be met by: 09/08/24 GOAL #5: BLE strength 4/5 Goal to be met by: 09/08/24 GOAL #6: . Shelter Goals GOAL #1: Transfer sup to/from sit to/from stand CGA Goal to be met by: 09/10/24 GOAL #2: pt amb 25ft with rwx with CGA to min x 1 Goal to be met by: 09/10/24 GOAL #3: Improve Dyn sit balance fair Goal to be met by: 09/10/24 Plan Plan of Care: Therapeutic EX, Neuromuscular Re-Educ and Therapeutic Activity Other:: gait training Frequency of Treatment: 1-2 X day, as tolerated Duration of Treatment: 5 days Anticipated Discharge Destination: Home Treatment Diagnosis (ICD 10 Codes): impaired balance R26.81 weakness M 62.81 gait difficulty R 26.2 Has the Physician been added for Co-signature?: Yes
--- NOTE | 2024-09-05 10:13 | RS.OTINEVL ---
Subjective Patient information Date of Evaluation: 09/05/24 Date of Arrival on Unit: 09/03/24 Admitted From:: Home Diagnosis: Covid, respiratory failure, weakness PRECAUTIONS: Fall risk leans to the right Usual Living Arrangement: With Spouse Living Arrangement Comments: Lives at home WITH SPOUSE and Caregivers Home Environment: House Medical History: Hypertension, Dementia and Arthritis Medical History Comments:: Parkinson's disease with tremors, dementia, LATEX ALLERGY?: No Surgical History: Tonsillectomy Surgical History Comments:: hernia surgery Medications: see chart Subjective Information/ Patient Comments:: "I need a urinal." "I need my water." Level of function Prior to this admission, the patient could do the following:: Partially Dependent Ambulation Abilities prior to this admission: Pt reported he used a Wheelchair in the home to get around. Pt reported he could transfer with the Caregiver to the toilet. Current Level of Function: Partially Dependent Comments: Pt has right side weakness. 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 Pt has tremors more in the RUE. Pt requires 2 to transfer due to the leaning to the right. Current Equipment Used at Home: Wheelchair, RW, shower chair Interventions Objective Patient Orientation: Person and Situation Current Interventions: Oxygen (2L) Observation: Pt requires 2 to transfer and he feels like he is falling backwards when he stands. Interventions ROM Right Upper Extremity AROM: Slight limitation Left Upper Extremity AROM: Slight limitation Strength Right Upper Extremity: Mild Weakness Left Upper Extremity: Mild Weakness Comments:: 4-/5. Sensation Right Upper Extremity: Intact/Normal Left Upper Extremity: Intact/Normal Balance Standing Balance Static Standing Balance: Poor Dynamic Standing Balance: Poor (Requires 2 people due to leaning to the right and leaning backwards.) ADL Skills Self Feeding Self Feeding: Mod Assist (Pt is too weak to feed himself.) Grooming Grooming: Mod Assist Grooming Set-up: Sitting Bathing Bathing UE: Mod Assist Bathing LE: Max Assist Bathing Set-up: Shower Comments:: Must not be left alone in shower due to balance. Dressing Dressing UE: Min Assist Dressing LE: Max Assist Toilet Management Toilet Hygiene: Max Assist Toilet Clothing Management: Mod Assist Functional Mobility Transfers Sit to Stand: Min Assist and 2 person assist Stand to Sit: Min Assist and 2 person assist Stand Pivot Transfers: Min Assist and 2 person assist Ambulation Weight Bearing Status: FWB Assistive Device Used: Rolling Walker Assistance needed with Ambulation: Mod Assist and 2 person assist Comments:: Leaning during ambulation to the right. Safety Awareness Safety Awareness: Fair (Pt feels like he is falling.) OLESYA INDEX SCORE: . Additional Treatment Performed Additional units charged ADL: 10 Time with patient Length of Evaluation: 17 Total treatment time: 27 Activities Do you enjoy playing games?: No Would you be interested in leaving your room for activities?: No Would you enjoy group activities?: No Do you have difficulty with your vision?: Yes What types of things do you enjoy doing? Any Hobbies?: sitting in chair and looking out the window Patient Interests:: Visiting/Socializing Patient Education Patient Education: Education of diagnosis, Home Exercise Program and Home Safety Teaching Recipient: Patient Teaching Methods: Discussion Comments: Asked if family could bring him some pants. Assessment Problem List:: Decreased level of function, Requires training/education, Decreased safety/Risk of falls, Weakness and Cognitive status limits abilities Rehab Potential: Fair Evaluation Complexity: HISTORY: Medium, EXAM OF BODY SYSTEMS: Medium and CLINICAL DECISION MAKING: Medium Patient's Goal(s): To be able to go back home. Short Term Goals Goals GOAL 1: Pt to be Independent with self feeding. Goal to be met by: 09/10/24 GOAL 2: Pt to be CGA with using a urinal in standing. Goal to be met by: 09/10/24 GOAL 3: Pt to increase BUE strength to 4/5. Goal to be met by: 09/10/24 GOAL 4: Pt to be Min A with LE dressing. Goal to be met by: 09/10/24 GOAL 5: Pt to be CGA with UB dressing. Goal to be met by: 09/10/24 GOAL 6: Pt to increase dyn. std. bal. to Fair. 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 Goal to be met by: 09/12/24 GOAL 2: Pt to increase dyn. std. bal. to F+ to increase safety of ADLs. Goal to be met by: 09/12/24 GOAL 3: Pt to increase [place] of ADLs to Independent. Goal to be met by: 09/12/24 Progress Towards Goal:: 25% Plan Plan of Care: Therapeutic EX, Neuromuscular Re-Educ, Therapeutic Activity and Self-Care/Home Management Frequency of Treatment: 1-2 X day, as tolerated Duration of Treatment: 1 Week Anticipated Discharge Destination: Home Treatment Diagnosis (ICD 10 Codes): Z74.1 Need for assistance with personal care, R53.1 Weakness, R26.81 Impaired balance Has the Physician been added for Co-signature?: Yes
[2024-09-06 05:19] VITALS: RESP 16; TEMP 97.3
[2024-09-06 06:09] LABS: EOSINOPHILS # (AUTO) 0.1 K/ul (0.0-0.7); EOSINOPHILS % (AUTO) 2.4 % (0.0-7.0); HEMATOCRIT 40.5 % (42.0-52.0); HEMOGLOBIN 13.2 g/dl (14.0-18.0); IMMATURE GRANULOCYTE % (AUTO) 0.4 % (0.0-5.0); LYMPHOCYTES # (AUTO) 0.8 K/uL (0.60-3.4); LYMPHOCYTES % (AUTO) 15.1 (10.0-50.0); MEAN CORPUSCULAR HEMOGLOBIN 30.1 pg (27.0-31.0); MEAN CORPUSCULAR HGB CONC 32.6 (31.8-35.4); MEAN CORPUSCULAR VOLUME 92.5 fl (80.0-94.0); MONOCYTES # (AUTO) 1.1 K/uL (0.4-2.0); NEUTROPHILS # (AUTO) 3.1 K/ul (2.0-6.9); NEUTROPHILS % (AUTO) 61.1 % (42.2-75.2); PLATELET COUNT 227 10^3/uL (140-440); RDW COEFFICIENT OF VARIATION 14.2 % (11.6-14.8); RED BLOOD COUNT 4.38 10^6/ul (4.70-6.10)
[2024-09-06 06:22] LABS: ALANINE AMINOTRANSFERASE 17.6 U/L (0-50); ALBUMIN 2.86 g/dL (3.5-5.0); ALKALINE PHOSPHATASE 56.6 U/L (56-119); ASPARTATE AMINO TRANSFERASE 39.3 U/L (17-59); BILIRUBIN,TOTAL 0.5 mg/dL (0.2-1.3); BLOOD UREA NITROGEN 26.4 mg/dL (9-20); CALCIUM 8.51 mg/dL (8.4-10.2); CARBON DIOXIDE 24.6 mmol/L (22-30.0); CHLORIDE 106.8 mmol/L (98-107); CREATININE 0.88 mg/dL (0.60-1.10); GLUCOSE 147.1 mg/dL (74-106); POTASSIUM 3.91 mmol/L (3.5-5.1); SODIUM 136.9 mmol/L (134.5-145); TOTAL PROTEIN 5.7 g/dL (6.3-8.2)
[2024-09-06 09:40] VITALS: BP 126/60; PULSE 67
--- NOTE | 2024-09-06 10:37 | DCSUM ---
Admission Date Admission Date: 09/04/24 Discharge Date Discharge Date: 09/06/24 Admission Diagnosis Admission Diagnosis: 1. Acute Hypoxic Respiratory Failure in setting of Covid-19 2. Covid-19 3. Bradycardia Discharge Diagnosis Discharge Diagnosis: 1. Acute Hypoxic Respiratory Failure in setting of Covid-19 -resolved 2. Covid-19 -improving 3. Bradycardia -resolved 4. Hypertension - chronic, stable 5. BPH -chronic stable Hospital Provider Hospital Provider: OLIVERIO CULP, [facility] [place] Primary Care Physician Primary Care Physician: GIOVANI GREEN MD Summary of History and Physical Summary of History and Physical: 89 yo male with pmh of dementia, hypertension, parkinson's, and bph presented to the ER for weakness. Patient returned home after residing a NH for 90 days and has been home for 1 week with his who is wheelchair bound and has 24hr caregiver in the home. Per family and ER doc, patient was so weak that they were not able to turn him in the bed or get him to walk. ER work-up revealed patient to be positive for Covid. On admission, O2 sat dropping down to 86-87% on RA. He was placed on 2L and is now maintaining a sat of 94-95%. Admitted to med/surg observation. Hospital Course Subjective: During stay patient was treated for COVID-19 with remdesivir Decadron and nebs. He required 2 L of oxygen initially, and was able to be weaned to room air. Maintaining a sat of 96%. Upon admission heart rate was running anywhere from upper 40s to low 50s. Patient takes propranolol at home, and this was held during stay. Recommend stopping at home. Labs remain stable. VSS stable. Follow-up with PCP in 1 week. Rx sent for Decadron Dosepak taper Appearance: Pleasant, No Apparent Distress and Alert HEENT: MMM, Supple and No JVD CVS: No Murmur, No Rubs and No Gallop Abdomen: Soft, Non-Tender and No Distention Respiratory: No Dyspnea Extremities: No Edema Vital Signs: Most Recent Vital Signs Temperature 97.3 F L 09/06/24 05:17 Temperature Source Temporal Artery Scan 09/06/24 05:17 Temperature Source Rectal 09/03/24 15:08 Pulse Rate 67 09/06/24 09:39 Respiratory Rate 16 09/06/24 09:39 Blood Pressure 126/60 09/06/24 09:39 Blood Pressure Mean 82 09/06/24 09:39 Blood Pressure Left Arm 126/68 09/03/24 18:26 Blood Pressure Location Left Arm 09/06/24 09:39 Blood Pressure Position Supine 09/06/24 09:39 O2 Sat by Pulse Oximetry 96 09/06/24 09:39 Oxygen Delivery Method Room Air 09/06/24 09:39 Oxygen Flow Rate 2 09/06/24 05:23 Height 5 ft 9 in 09/03/24 18:26 Weight 55.9 kg 09/03/24 18:26 Telemetry Type Remote Telemetry 09/06/24 07:00 Telemetry Monitoring Continues 09/06/24 07:00 Telemetry Heart Rate 68 09/06/24 07:00 Telemetry SPO2 96 09/05/24 07:00 EKG MA Interval 0.16 09/06/24 07:00 EKG QRS Interval 0.10 09/06/24 07:00 Telemetry Strip Reading sr 09/06/24 07:00 Imaging: EXAM: CHEST TWO VIEWS HISTORY: Leg swelling COMPARISON: Chest radiographs from 06/30/2024 FINDINGS: The cardiomediastinal silhouette is normal. The pulmonary vasculature is normal. Gastric angles are blunted on the lateral view. There is suggestion of minimal subjacent opacity in the lateral projection. No pneumothoraces. The bones are intact. IMPRESSION: 1. Trace pleural effusions suggested on the lateral projection with possible subjacent atelectasis and less likely infiltrates. Lab Results Last 24 Hours: 09/06/24 06:00 WBC 5.10 RBC 4.38 L Hgb 13.2 L Hct 40.5 L MCV 92.5 MCH 30.1 MCHC 32.6 RDW Coeff of [place] 14.2 Plt Count 227 Immature Gran % (Auto) 0.4 Neut % (Auto) 61.1 Lymph % (Auto) 15.1 [place] % (Auto) 21.0 H Eos % (Auto) 2.4 Baso % (Auto) 0.0 Neut # (Auto) 3.1 Lymph # (Auto) 0.8 [place] # (Auto) 1.1 Eos # (Auto) 0.1 Baso # (Auto) 0.0 Immature Gran # (Auto) 0.0 PT 14.0 H INR 1.37 Sodium 136.9 Potassium 3.91 Chloride 106.8 Carbon Dioxide 24.6 Anion Gap 9.41 BUN 26.4 H Creatinine 0.88 Estimated GFR (MDRD) 82.00 BUN/Creatinine Ratio 30.00 Glucose 147.1 H Calcium 8.51 Total Bilirubin 0.50 AST 39.3 ALT 17.6 Alkaline Phosphatase 56.6 Total Protein 5.70 L Albumin 2.86 L Globulin 2.84 Albumin/Globulin Ratio 1.00 Discharge Instructions Discharge Planning: Discharge Planning > 40 minutes If patient is discharged with left ventricular systolic dysfunction: no Discharged with a beta marely? [] If no, why not? [] Discharged with an antonio/arb? [] If no, why not? [] Diagnosis: Covid-19 Diet: Regular Activity: as tolerated Follow-up with PCP in 1 week Medications: [facility] 2 Discharge Medications: Medications at Discharge (Home Meds & RX) Lactobacillus acidophilus 10 billion cell capsule (Probiotic) 1 cell PO DAILY 07/03/19 clotrimazole-betamethasone 1 %-0.05 % topical cream See Rx Instructions .Route .COMPLEX #45 ea 10/22/23 tamsulosin 0.4 mg capsule 0.4 mg PO DAILY #90 ea 06/16/24 naproxen sodium 220 mg tablet (Aleve) 220 mg PO BID PRN pain 06/30/24 calcium carbonate (Tums) 200 mg PO QID #28 tabs 07/03/24 ondansetron 4 mg disintegrating tablet 4 mg PO Q8H PRN nausea and vomiting #14 tabs 07/03/24 aluminum hydrox-magnesium carb 160 mg-105 mg chewable tablet (Gaviscon Extra Strength) 1 tab PO TID PRN dyspepsia #270 tabs 07/07/24 hospitalbeds ([facility] Bed Rails) #1 ea 08/04/24 miscellaneous medical supply #1 ea 08/04/24 donepezil 10 mg tablet 10 mg PO BEDTIME #30 tabs 08/18/24 escitalopram oxalate 10 mg tablet 15 mg (1.5 x 10 mg) PO QDAY #45 tabs 08/18/24 memantine 10 mg tablet 10 mg PO QPM #30 tabs 08/18/24 propranolol 20 mg tablet See Rx Instructions .Route .COMPLEX #180 ea 08/18/24 alprazolam 0.25 mg tablet 0.25 mg PO BID PRN anxiety 09/03/24 carica papaya 3 tab PO BEDTIME 09/03/24 multivitamin 1 tab PO DAILY 09/03/24 omeprazole 20 mg capsule,delayed release 40 mg PO QDAY 09/03/24 ondansetron HCl 4 mg tablet 4 mg PO Q8H PRN nausea and vomiting 09/03/24 vitamins A,C,A-lkmi-ydmmpm 2,148 mcg-113 mg-45 mg-17.4 mg tablet (Eye Multivitamin) 2 tab PO BID 09/03/24 Discharge Plan Discharge Discharge Orders: Discharge Patient (ONCE); Ordered 09/06/24 Ordered By: JIMMY MARTINEZ Activity Restrictions/Additional Instructions: Diagnosis: Covid-19 Diet: Regular Activity: as tolerated Follow-up with PCP in 1 week Medications: [facility] 2 Instructions: COVID-19 (Coronavirus Disease 2019) (GEN) Patient Disposition: HOME WITH FAMILY CARE Prescriptions: New dexamethasone 1.5 mg (21 tabs) tablets,dose pack See Rx Instructions .ROUTE .COMPLEX Qty: 21 0RF Rx Instructions: orally per package directions Continued clotrimazole-betamethasone 1-0.05 % cream See Rx Instructions .ROUTE .COMPLEX Qty: 45 1RF Dose Instruction: APPLY TWICE DAILY GENERIC FOR LOTRISONE Rx Instructions: APPLY TWICE DAILY GENERIC FOR LOTRISONE tamsulosin 0.4 mg capsule 0.4 mg PO DAILY Qty: 90 1RF Gaviscon Extra Strength 160-105 mg tablet,chewable 1 tab PO TID PRN (Reason: dyspepsia) Qty: 270 1RF (DME) miscellaneous medical supply [facility] See Rx Instructions .ROUTE Qty: 1 0RF Rx Instructions: As directed (DME) [facility] See Rx Instructions .ROUTE Qty: 1 0RF Rx Instructions: As directed donepezil 10 mg tablet 10 mg PO BEDTIME Qty: 30 2RF escitalopram oxalate 10 mg tablet 15 mg PO QDAY Qty: 45 2RF Rx Instructions: TAKE ONE AND ONE HALF TABLET DAILY = 15 MG DAILY memantine 10 mg tablet 10 mg PO QPM Qty: 30 2RF ondansetron 4 mg tablet,disintegrating 4 mg PO Q8H PRN (Reason: nausea and vomiting) Qty: 14 0RF calcium carbonate [Tums] 200 mg calcium (500 mg) tablet,chewable 200 mg PO QID Qty: 28 0RF Probiotic 10 billion cell Capsule 1 cell PO DAILY Eye Multivitamin 2,148 mcg-113 mg-45 mg-17.4mg tablet 2 tab PO BID Rx Instructions: administer with AM and PM meals carica papaya Tablet 3 tab PO BEDTIME Rx Instructions: give with meal/snack multivitamin Tablet 1 tab PO DAILY omeprazole 20 mg capsule,delayed release(DR/EC) 40 mg PO QDAY alprazolam 0.25 mg tablet 0.25 mg PO BID PRN (Reason: anxiety) naproxen sodium [Aleve] 220 mg tablet 220 mg PO BID PRN (Reason: pain) Discontinued propranolol 20 mg tablet See Rx Instructions .ROUTE .COMPLEX Qty: 180 1RF Dose Instruction: TAKE ONE TABLET TWICE DAILY GENERIC FOR INDERAL Rx Instructions: TAKE ONE TABLET TWICE DAILY GENERIC FOR INDERAL ondansetron HCl 4 mg tablet 4 mg PO Q8H PRN (Reason: nausea and vomiting) Did you review [place] CONTRACT ADMINISTRATOR for ALL controlled substances?: No Discussed opioids are addictive and Narcan is available by prescription or from pharmacy.: No Condition: Stable Referrals: GIOVANI GREEN MD [Primary Care Provider] - 09/18/24 11:00 am
== END 2024-09-06 12:05 | disposition home or self-care (01) | DRG 177 ==
LOC: ED 14:15 → SCU 14:15
PROVIDERS: ADMIT Hospitalist; ATTEND Nurse Practitioner Family